=== PATIENT | male | born 1975 | race Hispanic/Latino ===

== ENCOUNTER 2018-03-10 06:14 | Inpatient (IN) | payer SELFPAY ==
[2018-03-10] MEDS ORDERED: MORPHINE 4 MG/ML SYR ONE (06:51)
[2018-03-10] MEDS ORDERED: NA CHLORIDE 0.9% 1,000 ML ONE (06:51)
[2018-03-10] MEDS ORDERED: ONDANSETRON 4 MG/2 ML VIAL ONE (06:51)
[2018-03-10 07:09] LABS: Absolute Lymphocytes (CBC) 1.4 K/uL (0.7-4.9); Absolute Monocytes 0.7 K/uL (0.1-1.3); Absolute Neutrophil 9.6 K/uL (1.8-8.0); Basophils % 0.6 % (0-1.3); Eosinophils % 1.5 % (0-4.4); Hematocrit 44.9 % (39.6-49.0); Lymphocytes % 11.7 % (15.3-44.8); MCH 28.4 pg (27.0-35.0); MPV 9.6 fL (7.6-11.3); Monocytes % 6.1 % (3.3-12.3); RBC Red Blood Cell Count 5.34 M/uL (4.33-5.43)
[2018-03-10 07:19] LABS: Bicarbonate 28 mEq/L (21-31); Lipase 20 U/L (22-51); Potassium 3.8 mEq/L (3.6-5.0); Sodium Level 134 mEq/L (135-145)
[2018-03-10 07:25] LABS: ALT/SGPT 24 IU/L (10-60); AST/SGOT 17 IU/L (10-42); Albumin 3.8 g/dL (3.2-5.5); Alkaline Phosphatase 89 IU/L (42-121); Amylase Level 47 U/L (28-100); BUN Blood Urea Nitrogen 15 mg/dL (6-20); Bilirubin Direct 0.2 mg/dL (0-0.2); Bilirubin Total 0.8 mg/dL (0.3-1.2); Protein, Total 6.9 g/dL (6.0-8.3)
[2018-03-10 07:28] LABS: Glucose Level 405 mg/dL (65-120)
[2018-03-10 07:51] LABS: Urine Bacteria <20 /HPF (NONE SEEN); Urine Culture Reflex Order NOT NEEDED; Urine RBC <5 /HPF (NONE SEEN)
--- NOTE | 2018-03-10 07:54 | RAD REPORT ---
EXAM DESCRIPTION: CT - Abdomen Pelvis W Contrast - 03/10/2018 7:38 am CLINICAL HISTORY: Abdominal pain. Right lower quadrant pain and fever COMPARISON: 2007 TECHNIQUE: Computed axial tomography of the abdomen and pelvis was obtained. 100 cc Isovue-300 is ad ministered intravenously. Oral contrast was not requested which limits evaluation of bowel. . A preli minary report was gender by [employer] and reviewed prior to dictation All CT scans are performed using dose optimization technique as appropriate and may include automated exposure control or mA/KV adjustment according to patient size. FINDINGS: The liver has a diminished attenuation consistent with fatty infiltration. Spleen, pancreas, adrenals and right kidney appear unremarkable. Parapelvic left renal cysts are seen . The appendix is normal caliber. There is no evidence of diverticulitis Fluid is present within nondilated small bowel Increased density is present within the subcutaneous tissues of the right scrotum and lower right ing uinal region IMPRESSION: Fluid within nondilated small bowel may indicate an enteritis Increased density is present within the subcutaneous tissues of the right scrotum and lower right ing uinal region which may indicate a cellulitis and should be correlated clinically
--- NOTE | 2018-03-10 08:04 | RAD REPORT ---
EXAM DESCRIPTION: US - Scrotum Testicles - 03/10/2018 7:25 am CLINICAL HISTORY: Right scrotal pain COMPARISON: CT abdomen March 10 FINDINGS: The right testicle measures 4.6 x 2.3 x 2.5 centimeters. The left testicle measures 4 x 2. 2 x 2.8 centimeters. The echotexture of each testicle is homogeneous with normal appearing intratesticular blood flow. The epididymides demonstrate normal blood flow. Diffuse edema is present within the right scrotal skin and subcutaneous tissues. A discrete fluid-belinda led abscess is not seen IMPRESSION: Diffuse edema in the right scrotal skin and subcutaneous tissues consistent with a cellu litis. A discrete fluid-filled abscess is not visualized
[2018-03-10] MEDS ORDERED: AMPICILLIN/SULBACT 3 GM in NA CHLORIDE 0.9% 100 ML IVPB ONE (08:30)
--- NOTE | 2018-03-10 08:38 | P.HP ---
Addendum entered and electronically signed by Gabby Yan FNPC 03/10/18 08 :54: Pt does no smoke, occasional ETOH, has one Son, lives with Significant other. Primarily speaks Mont[place]err[place]ian. 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 Pt says he sweats profusely while working and is in wet clothing most of the day. Original Note: Certification for Inpatient With expected LOS: >2 Midnights Patient will require the following post-hospital care: None Practitioner: I am a practitioner with admitting privileges, knowledge of patient current condition, hospital course, and medical plan of care. Services: Services provided to patient in accordance with Admission requirements found in Title 42 Section 412.3 of the Code of Federal Regulations <Gabby Yan - Last Filed: 03/10/18 08:26> Patient admitted to: Inpatient With expected LOS: >2 Midnights Patient will require the following post-hospital care: None Practitioner: I am a practitioner with admitting privileges, knowledge of patient current condition, hospital course, and medical plan of care. Services: Services provided to patient in accordance with Admission requirements found in Title 42 Section 412.3 of the Code of Federal Regulations <Dominick Pearson - Last Filed: 03/10/18 09:29> Patient History Date of Service: 03/10/18 Primary Care Provider: Norma Murray Reason for admission: Cellulitis of right scrotum History of Present Illness: Pt states he was lifting an air conditioning unit three days ago and had some right groin discomfort. Noted small bulge to right inguinal canal. Pt states the area started out small and progressively became bigger and more painful. Home medications list reviewed: Yes (Pt stopped all his medications 1 yr ago) - Past Medical/Surgical History Has patient received pneumonia vaccine in the past: No Diabetic: Yes -: Diabetes - stopped taking Metformin 1 yr ago <Gabby Yan - Last Filed: 03/10/18 08:26> Date of Service: 03/10/18 Primary Care Provider: Norma Murray NP History of Present Illness: 42-year-old male presented emergency room with inflammation to the right scrotal region. Erythema and pain noted. This starts to get worse today. 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 He start to notice some inflammation to the scan over the past several days. It has been getting worse. He did report a mild fever and mild nausea over the weekend. He denied any chest pain or shortness of breath. Patient with history of diabetes uncontrolled. He use to take oral medication about a year ago but stopped. Patient came to the ER for evaluation. In the ER patient was evaluated. White count elevated at 12. CT scan shows right scrotal and lower right inguinal region cellulitis. Scrotal ultrasound also shows right scrotal cellulitis. No abscess noted. Blood sugar was 405. Due to the nature of his symptoms the patient was admitted for treatment. When I saw the patient in the ER he was without any significant distress. Patient does not appear septic. Home medications list reviewed: Yes - Past Medical/Surgical History Has patient received pneumonia vaccine in the past: No Diabetic: Yes -: Diabetes mellitus type 2 -: Hypertension Past Surgical History: Patient denies surgical history Psychosocial/ Personal History: The patient is single. He has 1 child. 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 - Family History Mother -: Diabetes - Social History Smoking Status: Never smoker Alcohol use: Yes CD- Drugs: No Caffeine use: Yes Place of Residence: Home <Dominick Pearson - Last Filed: 03/10/18 09:29> Allergies No Known Allergies Allergy (Unverified 03/10/18 08:23) Review of Systems Unremarkable General: Unremarkable Eyes: Unremarkable ENT: Unremarkable Respiratory: Unremarkable Cardiovascular: Unremarkable Gastrointestinal: Unremarkable Musculoskeletal: Other (difficulty ambulating second to pressure in right scrotal area) Integumentary: Other (erythema to right scrotum) Neurological: Unremarkable Lymphatics: Unremarkable <Gabby Yan - Last Filed: 03/10/18 08:26> General: Fever, As per HPI Eyes: Unremarkable ENT: Unremarkable Respiratory: Unremarkable Cardiovascular: Unremarkable Gastrointestinal: Nausea, As per HPI Musculoskeletal: Other Integumentary: Other Neurological: Unremarkable Lymphatics: Unremarkable <Dominick Pearson - Last Filed: 03/10/18 09:29> Physical Examination - Vital Signs Temperature: 97.5 F Blood Pressure: 162/95 Pulse: 72 Respirations: 16 Pulse Ox (%): 97 - Physical Exam HEENT: Atraumatic, Normocephalic, PERRLA Neck: Supple, 2+ carotid pulse no bruit, JVD not distended Respiratory: Clear to auscultation bilaterally, Normal air movement Cardiovascular: No edema, Normal pulses, Regular rate/rhythm Capillary refill: <2 Seconds Gastrointestinal: Normal bowel sounds, Other (mild tenderness to right inguinal canal) Musculoskeletal: No erythema, No tenderness Integumentary: Tenderness/swelling, Erythema, Other (right inguinal canal and lateral scrotum) Neurological: Normal speech, Normal strength at 5/5 x4 extr, Normal tone, Sensation intact Lymphatics: Inguinal lymphadenopathy, Other (small to right) External genitalia: Edema, Tenderness, Other (to right scrotum, no testicular tenderness) Rectal: Deferred - Studies Laboratory Data (last 24 hrs) 03/10/18 06:50: Creatinine 0.75 03/10/18 06:50: WBC 12.0 H, Hgb 15.2, Hct 44.9, Plt Count 180 03/10/18 06:50: Sodium 134 L, Potassium 3.8, BUN 15, Creatinine 0.77, Glucose 405 H*, Total Bilirubin 0.8, AST 17, ALT 24, Alkaline Phosphatase 89, Amylase 47 , Lipase 20 L <Gabby Yan - Last Filed: 03/10/18 08:26> - Physical Exam General: Alert, In no apparent distress, Oriented x3, Cooperative HEENT: Atraumatic, Normocephalic, PERRLA, Mucous membr. moist/pink Neck: Supple, 2+ carotid pulse no bruit, JVD not distended, No Thyromegaly Respiratory: Clear to auscultation bilaterally, Normal air movement Cardiovascular: No edema, Normal pulses, Regular rate/rhythm Capillary refill: <2 Seconds Gastrointestinal: Normal bowel sounds, No masses, No rebound, No guarding, Other Musculoskeletal: No erythema, No tenderness, No warmth Integumentary: Tenderness/swelling (To the right scrotal region), Erythema (To the right scrotal region), Other (Right scrotal and lower inguinal region induration) Neurological: Normal speech, Normal strength at 5/5 x4 extr, Normal tone, Sensation intact, Normal affect Lymphatics: Inguinal lymphadenopathy, Other External genitalia: Edema (To the right scrotal region), Tenderness Rectal: Deferred - Studies Laboratory Data (last 24 hrs) 03/10/18 06:50: Creatinine 0.75 03/10/18 06:50: WBC 12.0 H, Hgb 15.2, Hct 44.9, Plt Count 180 03/10/18 06:50: Sodium 134 L, Potassium 3.8, BUN 15, Creatinine 0.77, Glucose 405 H*, Total Bilirubin 0.8, AST 17, ALT 24, Alkaline Phosphatase 89, Amylase 47 , Lipase 20 L <Dominick Pearson - Last Filed: 03/10/18 09:29> Assessment and Plan - Problems (Diagnosis) (1) Cellulitis Current Visit: Yes Status: Acute (2) Hypertension Current Visit: Yes Status: Acute (3) Non-insulin treated type 2 diabetes mellitus Current Visit: Yes Status: Acute - Advance Directives Does patient have a Living Will: No Does patient have a Durable POA for Healthcare: No - Code Status/Comfort Care Code Status Assessed: Yes Code Status: Full Code <Yuriy,Gabby - Last Filed: 03/10/18 08:26> - Problems (Diagnosis) (1) Diabetes mellitus Current Visit: Yes Status: Chronic Plan: Diabetes uncontrolled. Patient has been without medication over a year. Will start Levemir 20 units subcu. Will continue sliding scale. Will check A1c. Patient will need treatment at discharge. Patient with cellulitis. Will continue with antibiotic therapy. Will console urology to further assess. No abscess noted. 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 Patient with induration to the right scrotal region and lower inguinal region. Will monitor closely. Will consult urology to further evaluate. Qualifiers: Site of cellulitis: other site Qualified Code(s): L03.818 - Cellulitis of other sites (3) Hypertension Current Visit: Yes Status: Chronic Plan: Blood pressure mildly elevated. Will start lisinopril 10 mg daily. Qualifiers: Hypertension type: essential hypertension Qualified Code(s): I10 - Essential (primary) hypertension Discharge Plan: Home Plan to discharge in: 72 Hours - Advance Directives Does patient have a Living Will: No Does patient have a Durable POA for Healthcare: No - Code Status/Comfort Care Code Status Assessed: Yes Code Status: Full Code Physician Review: Patient Assessed, Agree with Above Assessment and Plan Time Spent Managing Pts Care (In Minutes): 55 <Dominick Pearson - Last Filed: 03/10/18 09:29>
[2018-03-10] MEDS ORDERED: ONDANSETRON 4 MG/2 ML VIAL IV PRN ×2 (09:29→11:34)
[2018-03-10] MEDS ORDERED: TRAMADOL HCL 50 MG TAB PO PRN (09:29)
[2018-03-10] MEDS ORDERED: D50W 25 GM/50 ML SYRINGE IV PRN ×2 (09:29→11:34)
[2018-03-10] MEDS ORDERED: GLUCAGON 1 MG/VIAL IM PRN ×2 (09:29→11:34)
[2018-03-10] MEDS ORDERED: VANCOMYCIN 1.25 GM in NA CHLORIDE 0.9% 250 ML IVPB SCH (10:00)
[2018-03-10] MEDS: NA CHLORIDE 0.9% 1,000 ML IV SCH ×3 (10:00→21:24)
--- NOTE | 2018-03-10 10:00 | ER ---
Nurse's Notes [facility] Name: Matthew Herrera Age: 42 yrs Sex: Male : 1975 Arrival Date: 03/10/2018 Time: 06:22 Bed 6 Private MD: Diagnosis: Cellulitis of right scrotum Presentation: 03/10 06:36 Presenting complaint: Patient states: of groin pain on the right. he also had rv undocumented fever yesterday but denies pain. this morning he woke up in pain (10/10). Transition of care: patient was not received from another setting of care. Onset of symptoms was March 10, 2018 at 05:00. Risk Assessment: Do you want to hurt yourself or someone else? Patient reports no desire to harm self or others. Initial Sepsis Screen: Does the patient meet any 2 criteria? No. Patient's initial sepsis screen is negative. Care prior to arrival: None. 06:36 Method Of Arrival: Ambulatory rv 06:36 Acuity: STEFF 3 rv 07:33 Initial Sepsis Screen: Does the patient have a suspected source of infection?. ph Historical: - Allergies: 06:38 No Known Allergies; rv - Home Meds: 06:38 None [Active]; rv - PMHx: 06:38 None; rv - PSHx: 06:38 None; rv - Immunization history:: Adult Immunizations Flu vaccine is not up to date. - Social history:: Smoking status: Patient/guardian denies using tobacco, never smoked. - Ebola Screening: : Patient negative for fever greater than or equal to 101.5 degrees Fahrenheit, and additional compatible Ebola Virus Disease symptoms Patient denies exposure to infectious person Patient denies travel to an Ebola-affected area in the 21 days before illness onset. Screenin:32 Abuse screen: Denies threats or abuse. Denies injuries from another. Nutritional ph screening: No deficits noted. Tuberculosis screening: No symptoms or risk factors identified. Fall Risk None identified. Assessment: 06:40 General: Appears uncomfortable, slender, Behavior is calm, cooperative. Pain: Complains rv of pain in groin Pain currently is 10 out of 10 on a pain scale. Neuro: Level of Consciousness is awake, alert, obeys commands, Oriented to person, place, time, situation. Cardiovascular: Capillary refill < 3 seconds. Respiratory: Airway is patent. GI: No signs and/or symptoms were reported involving the gastrointestinal system. : Swelling noted on scrotum. EENT: No signs and/or symptoms were reported regarding the EENT system. Derm: Skin is intact. Musculoskeletal: No signs and/or symptoms reported regarding the musculoskeletal system. 07:30 Reassessment: Patient appears in no apparent distress at this time. Patient and/or ph family updated on plan of care and expected duration. Pain level reassessed. Patient is alert, oriented x 3, equal unlabored respirations, skin warm/dry/pink. Pt resting quietly, at bedside, awaiting lab and radiology results, VSS. 09:03 Reassessment: Patient appears in no apparent distress at this time. Patient and/or ph family updated on plan of care and expected duration. Pain level reassessed. Patient is alert, oriented x 3, equal unlabored respirations, skin warm/dry/pink. Pt resting quietly, rates pain 3/10 at this time, VSS, at bedside. Vital Signs: 06:39 BP 162 / 95; Pulse 72; Resp 16; Temp 97.2; Pulse Ox 97% ; Weight 72.57 kg; Height 5 ft. rv 6 in. (167.64 cm); 07:31 BP 154 / 91; Pulse 73; Resp 16; Pulse Ox 98% on R/A; ph 09:03 BP 146 / 87; Pulse 73; Resp 18; Pulse Ox 98% on R/A; ph 06:39 Body Mass Index 25.82 (72.57 kg, 167.64 cm) rv ED Course: 06:22 Patient arrived in ED. al2 06:28 Stefano Lewis, LANDON is Primary Nurse. bp 06:29 Gabby Yan FNP-C is PHCP. snw 06:29 Jose Umana MD is Attending Physician. snw 06:38 Triage completed. rv 07:03 Inserted saline lock: 18 gauge in right antecubital area, using aseptic technique. rv 07:23 US Scrotum Testicles In Process Unspecified. EDMS 07:32 Patient has correct armband on for positive identification. Placed in gown. Bed in low ph position. Call light in reach. Side rails up X 1. Pulse ox on. NIBP on. Warm blanket given. 07:33 Arm band placed on. ph 07:36 CT completed. Patient tolerated procedure well. Patient moved to CT via wheelchair. Patient moved back from CT. 07:39 CT Abd/Pelvis - W/Contrast In Process Unspecified. EDMS 09:42 Inserted saline lock: 22 gauge in right wrist, using aseptic technique. Blood collected.em1 09:55 Dominick Pearson DO is Hospitalizing Provider. snw Administered Medications: 07:02 Drug: morphine 4 mg Route: IVP; Site: right antecubital; rv 09:53 Follow up: Response: No adverse reaction; Pain is decreased ph 07:02 Drug: Zofran 4 mg Route: IVP; Site: right antecubital; rv 09:53 Follow up: Response: No adverse reaction ph 07:03 Drug: NS 0.9% 1000 ml Route: IV; Rate: 125 ml/hr; Site: right antecubital; rv 09:54 Follow up: Response: No adverse reaction; IV Status: Infusion continued upon admission ph 09:02 Drug: Unasyn 3 grams Route: IVPB; Infused Over: 30 mins; Site: right antecubital; ph 09:53 Follow up: Response: No adverse reaction; IV Status: Completed infusion ph Outcome: 09:59 Decision to Hospitalize by Provider. snw 11:47 Patient left the ED. ph Signatures: Dispatcher [employer] EDMS Gabby Yan, [employer]-C [employer]-Cynthia Vaughn Eric em1 Coty Lamb RN RN Stefano Lewis RN RN bp Love, Angelica msDillon Hallman RN RN rv
--- NOTE | 2018-03-10 10:00 | EDPHYS ---
Physician Documentation [facility] Name: Matthew Herrera Age: 42 yrs Sex: Male : 1975 Arrival Date: 03/10/2018 Time: 06:22 Bed 6 Private MD: ED Physician Jose Umana HPI: 03/10 07:17 This 42 yrs old Male presents to ER via Ambulatory with complaints of Groin snw Pain. 07:17 The patient presents with swelling, that is moderate, of the right inguinal area, snw tenderness. Onset: The symptoms/episode began/occurred 3 day(s) ago, and became worse 1 day(s) ago, and became persistent. Modifying factors: The symptoms are alleviated by nothing. Associated signs and symptoms: Pertinent positives: nausea. Severity of symptoms: At their worst the symptoms were moderate, severe. The patient has not experienced similar symptoms in the past. The patient has not recently seen a physician. 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 Historical: - Allergies: 06:38 No Known Allergies; rv - Home Meds: 06:38 None [Active]; rv - PMHx: 06:38 None; rv - PSHx: 06:38 None; rv - Immunization history:: Adult Immunizations Flu vaccine is not up to date. - Social history:: Smoking status: Patient/guardian denies using tobacco, never smoked. - Ebola Screening: : Patient negative for fever greater than or equal to 101.5 degrees Fahrenheit, and additional compatible Ebola Virus Disease symptoms Patient denies exposure to infectious person Patient denies travel to an Ebola-affected area in the 21 days before illness onset. ROS: 07:15 Eyes: Negative for injury, pain, redness, and discharge, ENT: Negative for injury, snw pain, and discharge, Neck: Negative for injury, pain, and swelling, Cardiovascular: Negative for chest pain, palpitations, and edema, Respiratory: Negative for shortness of breath, cough, wheezing, and pleuritic chest pain, Back: Negative for injury and pain, MS/Extremity: Negative for injury and deformity, Skin: Negative for injury, rash, and discoloration, Neuro: Negative for headache, weakness, numbness, tingling, and seizure. 07:15 Constitutional: Positive for malaise. 07:15 Abdomen/GI: Positive for abdominal pain, of the right lower quadrant. 07:15 : Positive for pain, tenseness to right lateral scrotum. Exam: 06:51 Constitutional: This is a well developed, well nourished patient who is awake, alert, snw and in no acute distress. Head/Face: Normocephalic, atraumatic. Eyes: Pupils equal round and reactive to light, extra-ocular motions intact. Lids and lashes normal. Conjunctiva and sclera are non-icteric and not injected. Cornea within normal limits. Periorbital areas with no swelling, redness, or edema. ENT: Nares patent. No nasal discharge, no septal abnormalities noted. Tympanic membranes are normal and external auditory canals are clear. Oropharynx with no redness, swelling, or masses, exudates, or evidence of obstruction, uvula midline. Mucous membranes moist. Neck: Trachea midline, no thyromegaly or masses palpated, and no cervical lymphadenopathy. Supple, full range of motion without nuchal rigidity, or vertebral point tenderness. No Meningismus. Chest/axilla: Normal chest wall appearance and motion. Nontender with no deformity. No lesions are appreciated. Cardiovascular: Regular rate and rhythm with a normal S1 and S2. No gallops, murmurs, or rubs. Normal PMI, no JVD. No pulse deficits. Respiratory: Lungs have equal breath sounds bilaterally, clear to auscultation and percussion. No rales, rhonchi or wheezes noted. No increased work of breathing, no retractions or nasal flaring. Back: No spinal tenderness. No costovertebral tenderness. Full range of motion. Skin: Warm, dry with normal turgor. Normal color with no rashes, no lesions, and no evidence of cellulitis. 06:51 MS/ Extremity: Pulses equal, no cyanosis. Neurovascular intact. Full, normal range of motion. Neuro: Awake and alert, GCS 15, oriented to person, place, time, and situation. Cranial nerves II-XII grossly intact. Motor strength 5/5 in all extremities. Sensory grossly intact. Cerebellar exam normal. Normal gait. 06:51 Abdomen/GI: Inspection: abdomen appears normal, Bowel sounds: normal, Palpation: mild abdominal tenderness, in the right lower quadrant. 06:51 : Male external genitalia: erythema, swelling, scrotal, is noted in the right inguinal area, tenderness. Vital Signs: 06:39 BP 162 / 95; Pulse 72; Resp 16; Temp 97.2; Pulse Ox 97% ; Weight 72.57 kg; Height 5 ft. rv 6 in. (167.64 cm); 07:31 BP 154 / 91; Pulse 73; Resp 16; Pulse Ox 98% on R/A; ph 09:03 BP 146 / 87; Pulse 73; Resp 18; Pulse Ox 98% on R/A; ph 06:39 Body Mass Index 25.82 (72.57 kg, 167.64 cm) rv MDM: 06:29 Patient medically screened. snw 09:59 Data reviewed: vital signs, nurses notes. Data interpreted: Pulse oximetry: on room air snw is 98 %. Interpretation: normal. Counseling: I had a detailed discussion with the patient and/or guardian regarding: the historical points, exam findings, and any diagnostic results supporting the discharge/admit diagnosis, the presence of at least one elevated blood pressure reading (>120/80) during this emergency department visit, lab results, radiology results, the need for further work-up and treatment in the hospital. Physician consultation: Dominick Pearson DO was called at 09:15, was contacted at 09:15, regarding admission, to the medical/surgical unit. patient's condition. 03/10 06:44 Order name: Amylase, Serum; Complete Time: 07:33 snw 03/10 06:44 Order name: Basic Metabolic Panel; Complete Time: 07:33 snw 03/10 06:44 Order name: CBC with Diff; Complete Time: 07:13 snw 03/10 06:44 Order name: Creatinine for Radiology; Complete Time: 07:21 snw 03/10 06:44 Order name: Hepatic Function; Complete Time: 07:33 snw 03/10 06:44 Order name: Lipase; Complete Time: 07:33 snw 03/10 06:44 Order name: Urine Microscopic Only; Complete Time: 07:55 snw 03/10 06:44 Order name: Blood Culture Adult (2) [facility] 03/10 07:15 Order name: Urine Dipstick--Ancillary (enter results) ag 03/10 09:05 Order name: Hemoglobin A1c sn 03/10 09:05 Order name: Procalcitonin snw 03/10 10:09 Order name: Hemoglobin A1C; Complete Time: 10:11 EDRI 03/10 10:35 Order name: Procalcitonin; Complete Time: 11:13 EDRI 03/10 11:43 Order name: Glucose, Ancillary Testing; Complete Time: 14:27 EDRI 03/10 06:44 Order name: IV Saline Lock; Complete Time: 06:52 snw 03/10 06:44 Order name: Labs collected and sent; Complete Time: 06:52 snw 03/10 06:44 Order name: Urine Dipstick-Ancillary (obtain specimen); Complete Time: 09:54 snw 03/10 06:44 Order name: US Scrotum Testicles; Complete Time: 08:16 snw 03/10 06:44 Order name: CT Abd/Pelvis - W/Contrast; Complete Time: 07:55 snw Administered Medications: 07:02 Drug: morphine 4 mg Route: IVP; Site: right antecubital; rv 09:53 Follow up: Response: No adverse reaction; Pain is decreased ph 07:02 Drug: Zofran 4 mg Route: IVP; Site: right antecubital; rv 09:53 Follow up: Response: No adverse reaction ph 07:03 Drug: NS 0.9% 1000 ml Route: IV; Rate: 125 ml/hr; Site: right antecubital; rv 09:54 Follow up: Response: No adverse reaction; IV Status: Infusion continued upon admission ph 09:02 Drug: Unasyn 3 grams Route: IVPB; Infused Over: 30 mins; Site: right antecubital; ph 09:53 Follow up: Response: No adverse reaction; IV Status: Completed infusion ph Disposition: 03/10/18 09:59 Hospitalization ordered by Dominick Pearson for Inpatient Admission. Preliminary diagnosis is Cellulitis of right scrotum. - Bed requested for Telemetry/MedSurg (Inpatient). - Status is Inpatient Admission. ph - Condition is Stable. - Problem is new. - Symptoms are unchanged. UTI on Admission? No Addendum: 03/27/2018 10:56 Co-signature as Attending Physician, Jose Umana MD. g s Signatures: Dis[facility] Gabby Yan, HAR[employer] OFFICER-[employer] Ewelina Shaikh Patricia RN RN ph Umana, MD SLICK Garcia Dillon Coates RN RN rv Corrections: (The following items were deleted from the chart) 03/10 10:48 09:59 Hospitalization Ordered by Dominick Pearson DO for Inpatient Admission. Preliminary ag diagnosis is Cellulitis of right scrotum. Bed requested for Telemetry/MedSurg (Inpatient). Status is Inpatient Admission. Condition is Stable. Problem is new. Symptoms are unchanged. UTI on Admission? No. snw 11:47 10:48 03/10/2018 09:59 Hospitalization Ordered by Dominick Pearson DO for Inpatient ph Admission. Preliminary diagnosis is Cellulitis of right scrotum. Bed requested for Telemetry/MedSurg (Inpatient). Status is Inpatient Admission. Condition is Stable. Problem is new. Symptoms are unchanged. UTI on Admission? No. ag
[2018-03-10 10:09] LABS: A1c Component 1.79 mg/dL; Hemoglobin A1c 12.7 % (4-6.0)
[2018-03-10] MEDS ORDERED: INSULIN -REGULAR HUMAN 50 UNIT/0.5 ML ML IV SCH (11:34)
[2018-03-10] MEDS ORDERED: VANCOMYCIN/NS 1 gm 1 GM/250 ML BAG IVPB SCH (11:34)
[2018-03-10] MEDS ORDERED: MORPHINE 4 MG/ML SYR IV PRN (11:34)
[2018-03-10] MEDS ORDERED: ACETAMINOPHEN 500 MG TAB PO PRN (11:34)
[2018-03-10 12:16] VITALS: BMI 25.0
[2018-03-10] MEDS: HYDROCODONE/APAP 7.5/325 MG TAB PO PRN ×2 (12:26→21:38)
[2018-03-10] MEDS: INSULIN -REGULAR HUMAN 50 UNIT/0.5 ML ML SQ SCH ×3 (12:26→21:25)
[2018-03-10] MEDS: ACETAMINOPHEN 500 MG TAB PO PRN (16:23)
[2018-03-10] MEDS: ENOXAPARIN 40 MG/0.4 ML SQ SCH (16:23)
[2018-03-10] MEDS ORDERED: POTASSIUM CL SA 10 MEQ TAB PO ONE (17:00)
[2018-03-10] MEDS ORDERED: PIPER/TAZO/NS 3.375gm 3.375 GM/100 ML BAG IVPB SCH (17:00)
[2018-03-10 17:37] LABS: Urine Blood NEGATIVE (NEG); Urine Glucose 2+ (NEG); Urine Protein NEGATIVE (NEG)
[2018-03-10] MEDS: PIPER/TAZO/NS 3.375gm 3.375 GM/100 ML BAG IVPB SCH (17:38)
--- NOTE | 2018-03-10 19:09 | CON ---
History Of Present Illness: This is a pleasant gentleman, who is 42 years old with history of diabetes mellitus type 2. 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 He sa ys he has been to places with lots of spiders lately. He noticed inflammation in his right scrotum 2 days ago after lifting something heavy. He thought he had caused a hernia there, but it continue to swell and it was reddened. So he came to the ER, where [place] [address] [place] scan showed a right scrotal or right inguinal cellulitis. Scrotal ultrasound confirmed the same thing. No abscesses were found. His blood sugar was elevated to 405. He was admitted for IV antibiotics. He is currently on IV vancomycin. Past Medical History: The patient has diabetes type 2 and hypertension. Past Surgical History: Denies. 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 Family History: Mother, diabetes. Social History: The patient never smoked. Alcohol use; some use, yes. No drug use. Caffeine use, yes. Resides at home. Allergies: NO KNOWN DRUG ALLERGIES. Review of Systems: General: Unremarkable. Eyes: Unremarkable. HEENT: Unremarkable. Respiratory: No pneumonia or pulmonary problems. Cardiac: No chest pain. Gastrointestinal: He complains of some nausea with this illness. Musculoskeletal: None. Integumentary: None. Neurologic: Unremarkable. Lymphatics: Unremarkable. Physical Examination: Vital Signs: Temperature 97.5, blood pressure 162/95, pulse 72, respirations 18, and saturation 97%. HEENT: Atraumatic and normocephalic. Neck: Supple. Chest: Clear to auscultation. Cardiovascular: S1 and S2. Skin: No rashes on the skin. Some tenderness and swelling over the right inguinal area with some ma tting. No masses were palpable. No flocculence. Testicles were normal. GLENN: Deferred. Laboratory Studies: Shows a white count 12.0, H and H 15 and 45, and platelet count 180. Chemistry: Sodium 134, potassium 3.8, chloride 98, carbon dioxide 28, BUN 15, creatinine 0.77, and glucose 405 . He has had subsequent glucose test that is now down to 231. Urine studies are normal. Assessment: Right scrotal cellulitis. Plan: Continue IV antibiotic treatment. The patient is currently on vancomycin 1.25 g q.12 hours an d also Zosyn. Pharmacy will check the vancomycin levels. He is on tramadol for pain, Zofran for naus ea. We will continue to monitor the patient and see how he does, and then we will for home antibioti cs for his cellulitis later. TROY/FROILAN Voice ID: [id number] Report ID: [id number]
[2018-03-10] MEDS: VANCOMYCIN 1.25 GM in NA CHLORIDE 0.9% 250 ML IVPB SCH (21:25)
[2018-03-11] MEDS ORDERED: LORAZEPAM 0.5 MG TABLET PO ONE (00:08)
[2018-03-11] MEDS: PIPER/TAZO/NS 3.375gm 3.375 GM/100 ML BAG IVPB SCH ×3 (01:09→17:43)
[2018-03-11] MEDS: ACETAMINOPHEN 500 MG TAB PO PRN ×3 (01:10→15:49)
[2018-03-11 04:42] LABS: Absolute Lymphocytes (CBC) 1.4 K/uL (0.7-4.9); Absolute Neutrophil 10.6 K/uL (1.8-8.0); Basophils % 0.2 % (0-1.3); Eosinophils % 0.2 % (0-4.4); Hematocrit 38.8 % (39.6-49.0); Lymphocytes % 10.6 % (15.3-44.8); MCH 28.7 pg (27.0-35.0); MCV 83.5 fL (80-100); MPV 9.5 fL (7.6-11.3); Monocytes % 7.9 % (3.3-12.3); RBC Red Blood Cell Count 4.64 M/uL (4.33-5.43)
[2018-03-11 05:26] LABS: BUN Blood Urea Nitrogen 10 mg/dL (6-20); Bicarbonate 25 mEq/L (21-31); Glucose Level 159 mg/dL (65-120); HDL Cholesterol 40 mg/dL (27-67); LDL Cholesterol, Calculated 64 (<130); Magnesium 1.8 mg/dL (1.8-2.5); Potassium 3.2 mEq/L (3.6-5.0); Sodium Level 136 mEq/L (135-145); Thyroid Stimulating Hormone 1.27 uIU/mL (0.34-5.60)
[2018-03-11] MEDS ORDERED: POTASSIUM 25 MEQ EFFERV TAB PO ONE (05:36)
[2018-03-11] MEDS ORDERED: MAGNESIUM SULFATE 1 gm IVPB 1 GM/100 ML BAG IV ONE (05:37)
[2018-03-11] MEDS ORDERED: INSULIN DETEMIR 100 UNIT/1 ML INSULIN SQ SCH (08:00)
[2018-03-11] MEDS: LISINOPRIL 10 MG TAB PO SCH (08:20)
[2018-03-11] MEDS: INSULIN -REGULAR HUMAN 50 UNIT/0.5 ML ML SQ SCH ×4 (08:21→20:57)
[2018-03-11] MEDS: NA CHLORIDE 0.9% 1,000 ML IV SCH ×3 (08:22→17:42)
[2018-03-11] MEDS: INSULIN DETEMIR 100 UNIT/1 ML INSULIN SQ SCH (08:23)
[2018-03-11] MEDS: VANCOMYCIN 1.25 GM in NA CHLORIDE 0.9% 250 ML IVPB SCH ×2 (08:24→22:12)
[2018-03-11] MEDS ORDERED: VANCOMYCIN 1 GM in NA CHLORIDE 0.9% 500 ML IVPB SCH (09:00)
--- NOTE | 2018-03-11 10:09 | P.PN ---
Subjective Date of Service: 03/11/18 Primary Care Provider: Norma Murray NP Chief Complaint: Cellulitis of right scrotum Subjective: Improving Physical Examination - Vital Signs Temperature: 98 F Blood Pressure: 126/76 Pulse: 85 Respirations: 18 Pulse Ox (%): 95 - Physical Exam General: Alert, In no apparent distress, Oriented x3, Cooperative HEENT: Atraumatic Neck: Supple Respiratory: Clear to auscultation bilaterally, Normal air movement Cardiovascular: Normal pulses, Regular rate/rhythm Gastrointestinal: Normal bowel sounds, Soft and benign, Non-distended, No masses , No rebound, No guarding Musculoskeletal: No tenderness, No warmth Integumentary: Other (Erythema, swelling to the right scrotal region improved) Neurological: Normal speech, Normal strength at 5/5 x4 extr, Normal tone External genitalia: Other (As above) - Studies Medications List Reviewed: Yes Assessment & Plan - Problems (Diagnosis) (1) Diabetes mellitus Onset Date: 03/11/18 Current Visit: Yes Status: Chronic Plan: A1c 12.2. Patient started on basal insulin-Levemir. Patient will need continue with this. Patient may require metformin at discharge along with insulin. Diabetic education will be provided. Qualifiers: Diabetes mellitus type: type 2 Diabetes mellitus jail insulin use: without oysterman use Diabetes mellitus complication status: with other specified complication Qualified Code(s): E11.69 - Type 2 diabetes mellitus with other specified complication (2) Cellulitis Onset Date: 03/11/18 Current Visit: Yes Status: Acute Plan: Continue with IV antibiotic therapy. This has improved. Anticipate possible discharge tomorrow if improved. Will ambulate patient. Will discuss with urology. Qualifiers: Site of cellulitis: other site Qualified Code(s): L03.818 - Cellulitis of other sites (3) Hypertension Onset Date: 03/11/18 Current Visit: Yes Status: Chronic Plan: Patient started on lisinopril. Will continue monitor and adjust appropriately. Qualifiers: Hypertension type: essential hypertension Qualified Code(s): I10 - Essential (primary) hypertension (4) Hypokalemia Current Visit: Yes Status: Acute Plan: Will monitor and replace appropriately. Replacement protocol in place. Discharge Plan: Home Plan to discharge in: 24 Hours Time Spent Managing Pts Care (In Minutes): 55
[2018-03-11] MEDS ORDERED: POTASSIUM CL SA 10 MEQ TAB PO ONE (14:00)
[2018-03-11] MEDS: ENOXAPARIN 40 MG/0.4 ML SQ SCH (17:43)
[2018-03-11] MEDS ORDERED: BENZONATATE 100 MG CAP PO PRN (19:45)
[2018-03-11 20:16] VITALS: O2SAT 96
[2018-03-12] MEDS: guaiFENesin 100 MG/5 ML UCUP PO SCH ×2 (00:55→08:51)
[2018-03-12] MEDS: PIPER/TAZO/NS 3.375gm 3.375 GM/100 ML BAG IVPB SCH ×2 (00:55→08:51)
[2018-03-12 05:55] LABS: Absolute Lymphocytes (CBC) 1.7 K/uL (0.7-4.9); Absolute Monocytes 1.2 K/uL (0.1-1.3); Absolute Neutrophil 9.7 K/uL (1.8-8.0); Basophils % 0.6 % (0-1.3); Eosinophils % 0.4 % (0-4.4); Hematocrit 37.3 % (39.6-49.0); Lymphocytes % 13.4 % (15.3-44.8); MCH 28.5 pg (27.0-35.0); MCV 83.6 fL (80-100); MPV 9.2 fL (7.6-11.3); Monocytes % 9.1 % (3.3-12.3); RBC Red Blood Cell Count 4.46 M/uL (4.33-5.43)
[2018-03-12 06:05] LABS: BUN Blood Urea Nitrogen 6 mg/dL (6-20); Bicarbonate 26 mEq/L (21-31); Glucose Level 128 mg/dL (65-120); Magnesium 1.8 mg/dL (1.8-2.5); Potassium 3.4 mEq/L (3.6-5.0); Sodium Level 135 mEq/L (135-145)
[2018-03-12] MEDS ORDERED: MAGNESIUM SULFATE 1 gm IVPB 1 GM/100 ML BAG IV ONE (06:24)
[2018-03-12] MEDS ORDERED: POTASSIUM CL SA 10 MEQ TAB PO ONE (06:27)
[2018-03-12] MEDS: NA CHLORIDE 0.9% 1,000 ML IV SCH ×2 (06:51→12:00)
[2018-03-12] MEDS: INSULIN -REGULAR HUMAN 50 UNIT/0.5 ML ML SQ SCH ×2 (07:30→11:30)
[2018-03-12] MEDS: LISINOPRIL 10 MG TAB PO SCH (08:51)
[2018-03-12] MEDS: INSULIN DETEMIR 100 UNIT/1 ML INSULIN SQ SCH (08:51)
[2018-03-12] MEDS ORDERED: VANCOMYCIN 1.5 GM in NA CHLORIDE 0.9% 500 ML IVPB SCH (09:00)
[2018-03-12 12:03] VITALS: BP 136/79; TEMP 98.6
--- NOTE | 2018-03-12 16:50 | P.DS ---
Admission Date: 03/10/18 Discharge Date: 03/12/18 Primary Care Provider: Norma Murray NP Disposition: ROUTINE DISCHARGE Discharge Condition: GOOD Reason for Admission: Cellulitis of right scrotum Consultations: Urology Procedures: None Brief History of Present Illness: 42-year-old male presented emergency room with inflammation to the right scrotal region. Erythema and pain noted. This starts to get worse today. Patient works outside [employer]. He start to notice some inflammation to the scan over the past several days. It has been getting worse. He did report a mild fever and mild nausea over the weekend. He denied any chest pain or shortness of breath. Patient with history of diabetes uncontrolled. He use to take oral medication about a year ago but stopped. Patient came to the ER for evaluation. In the ER patient was evaluated. White count elevated at 12. CT scan shows right scrotal and lower right inguinal region cellulitis. Scrotal ultrasound also shows right scrotal cellulitis. No abscess noted. Blood sugar was 405. Due to the nature of his symptoms the patient was admitted for treatment. Hospital Course: Overall during the hospital stay patient remained stable Patient was initially admitted to the hospital for sepsis most likely secondary to scrotal cellulitis on the right-hand side. Patient was initially started on IV and vancomycin and Zosyn. Patient had marked improvement here in the hospital and was switched over to p.o. Augmentin after the cultures were initially negative. Patient's swelling and redness improved again markedly here in the hospital and thus patient was discharged home on p.o. Augmentin and doxycycline. While here in the hospital patient did have an episode of hyperglycemia most likely secondary to infection and thus patient was educated extensively on diet and exercise and was asked to follow up with his primary care provider in resume all his home medications as prescribed by his PCP. Patient demonstrated understanding and thus was discharged home under stable condition. Patient was asked to return to work on Friday if the symptoms have not progressed and the swelling has improved/ Vital Signs/Physical Exam: Temp Pulse Resp BP Pulse Ox 98.6 F 68 18 136/79 96 03/12/18 12:00 03/12/18 12:00 03/12/18 12:00 03/12/18 12:03/12/18 12:00 General: Alert, In no apparent distress HEENT: Atraumatic, PERRLA, EOMI Neck: Supple, JVD not distended Respiratory: Clear to auscultation bilaterally, Normal air movement Cardiovascular: Regular rate/rhythm, Normal S1 S2 Gastrointestinal: Normal bowel sounds, No tenderness Musculoskeletal: No tenderness Integumentary: No rashes Neurological: Normal speech, Normal tone, Normal affect Lymphatics: No axilla or inguinal lymphadenopathy External genitalia: Tenderness, Other (Erythema. Improved from before. ) Laboratory Data at Discharge: WBC 12.6 K/uL (4.3-10.9) H 03/12/18 05:30 Hgb 12.7 g/dL (13.6-17.9) L 03/12/18 05:30 Hct 37.3 % (39.6-49.0) L 03/12/18 05:30 Plt Count 176 K/uL (152-406) 03/12/18 05:30 Sodium 135 mEq/L (135-145) 03/12/18 05:30 Potassium 3.7 mEq/L (3.6-5.0) 03/12/18 13:44 BUN 6 mg/dL (6-20) 03/12/18 05:30 Creatinine 0.67 mg/dL (0.61-1.24) 03/12/18 05:30 Glucose 128 mg/dL (65-120) H 03/12/18 05:30 Magnesium 1.8 mg/dL (1.8-2.5) 03/12/18 05:30 Total Bilirubin 0.8 mg/dL (0.3-1.2) 03/10/18 06:50 AST 17 IU/L (10-42) 03/10/18 06:50 ALT 24 IU/L (10-60) 03/10/18 06:50 Alkaline Phosphatase 89 IU/L (42-121) 03/10/18 06:50 Triglycerides 77 mg/dL (35-160) 03/11/18 03:42 Cholesterol 119 mg/dL (<200) 03/11/18 03:42 HDL Cholesterol 40 mg/dL (27-67) 03/11/18 03:42 Cholesterol/HDL Ratio 2.98 03/11/18 03:42 Amylase 47 U/L (28-100) 03/10/18 06:50 Lipase 20 U/L (22-51) L 05/29/18 06:50 Home Medications: Amox/Clavulanate [Augmentin 875-125 Tab] 1 each PO BID #28 tab 03/12/18 Doxycycline Monohydrate 100 mg PO BID #28 capsule 03/12/18 Lisinopril [Prinivil*] 10 mg PO DAILY #30 tab 03/12/18 New Medications: Amox/Clavulanate [Augmentin 875-125 Tab] 1 each PO BID #28 tab Doxycycline Monohydrate 100 mg PO BID #28 capsule Lisinopril [Prinivil*] 10 mg PO DAILY #30 tab Patient Discharge Instructions: Please f.u with PCP in 1 to 2 weeks. New medication. Doxycycline 100mg BID for 14 days. Augementin 875mg BID for 14 days Diet: Regular Activity: Ad darinel Followup: Sheldon Nelson MD [ACTIVE - CAN ADMIT] -
--- NOTE | 2018-03-12 17:43 | PN ---
The patient is postop day #3, doing much better. The swollen right inguinal has gone down, is more i n the area in the scrotum that little more kind of area that may potentially pus out, but right now i t looks okay. We will continue him on antibiotics and if he does become postural, may need to be dra andre. He is afebrile. White count is 12.6, stable. H and H are 12.7 and 37, platelet count 176. H e is afebrile, stable. He is going to go home with something for spider bite, possible Bactrim and A ugmentin to take at home. He really wants to go home and get back to work. He is feeling much deny r and he can follow up with me p.rnina SIMMONS/FROILAN Voice ID: [id number] Report ID: [id number]
== END 2018-03-12 15:52 | disposition home or self-care (01) | DRG 728 ==
LOC: ER 06:14 → ERHOLD 08:47 → 4TH 11:08
PROVIDERS: ADMIT Family Medicine; ATTEND Family Medicine
DX: N49.2 Inflammatory disorders of scrotum (principal); E11.9 Type 2 diabetes mellitus without complications; I10 Essential (primary) hypertension; E87.6 Hypokalemia
CPT/HCPCS: 36415; 74177; 76870; 80048; 80061; 80076; 80202; 81003; 81015; 82150; 82962; 83036; 83690; 83735; 84132; 84145; 84443; 85025; 87040; 96361; 96365; 96375; 99284; J0295; J1650; J2405; J2543; J3475; J7030; Q9967

== ENCOUNTER 2019-05-03 17:07 | Emergency (ER) | payer SELFPAY ==
--- NOTE | 2019-05-03 18:12 | RAD REPORT ---
EXAM DESCRIPTION: RAD - Chest Single View - 05/03/2019 6:05 pm CLINICAL HISTORY: CHEST PAIN Chest pain. COMPARISON: CHEST SINGLE VIEW dated 01/14/2009 FINDINGS: Portable technique limits examination quality. The lungs are grossly clear. The heart is normal in size. No displaced fractures. IMPRESSION: No acute intrathoracic process suspected.
[2019-05-03 18:16] LABS: Absolute Lymphocytes (CBC) 1.3 K/uL (0.7-4.9); Basophils % 0.4 % (0-1.3); Lymphocytes % 23.9 % (15.3-44.8); MPV 10.1 fL (7.6-11.3); RBC Red Blood Cell Count 5.13 M/uL (4.33-5.43)
[2019-05-03 18:19] LABS: Protime INR 0.88
[2019-05-03 18:39] LABS: ALT/SGPT 38 U/L (12-78); AST/SGOT 17 U/L (15-37); Albumin 3.6 g/dL (3.4-5.0); Alkaline Phosphatase 91 U/L (45-117); BUN Blood Urea Nitrogen 12 mg/dL (7-18); Bicarbonate 31 mmol/L (21-32); Bilirubin Direct 0.1 mg/dL (0-0.2); Bilirubin Total 0.5 mg/dL (0.2-1.0); Creatine Phosphokinase 219 U/L (39-308); Magnesium 2.3 mg/dL (1.8-2.4); NT PRO-BNP 40 pg/mL (<125); Potassium 4.3 mmol/L (3.5-5.1); Protein, Total 6.9 g/dL (6.4-8.2); Sodium Level 134 mmol/L (136-145); Troponin (Emerg Dept Use Only) < 0.02 ng/mL (0.0-0.045)
[2019-05-03 18:41] LABS: Glucose Level 450 mg/dL (74-106)
[2019-05-03 19:07] LABS: Urine Blood NEGATIVE (NEG); Urine Glucose 2+ (NEG); Urine Protein NEGATIVE (NEG); Urine pH 6.5 (5.0-7.0)
[2019-05-03] MEDS ORDERED: ASPIRIN 81 MG CHEWABLE TABLET ONE (19:12)
[2019-05-03] MEDS ORDERED: NA CHLORIDE 0.9% 1,000 ML ONE (19:13)
[2019-05-03] MEDS ORDERED: INSULIN -REGULAR HUMAN 50 UNIT/0.5 ML ML ONE (19:13)
[2019-05-03 19:57] LABS: Urine Bacteria <20 /HPF (NONE SEEN); Urine Culture Reflex Order NOT NEEDED; Urine RBC <5 /HPF (NONE SEEN)
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
[2019-05-04 01:23] VITALS: TEMP 98.5
[2019-05-04 01:31] VITALS: BP 132/80; O2SAT 100
--- NOTE | 2019-05-04 10:39 | EKG ---
Test Date: 2019-05-03 Test Time: 21:40:27 Chief Cardiopulmonary Technologist: ELEONORA MEASUREMENT RESULTS: Intervals: Rate: 59 TN: 212 QRSD: 86 QT: 408 QTc: 403 [place]: P: 42 TN: 212 QRS: 97 T: 63 INTERPRETIVE STATEMENTS: Sinus bradycardia with 1st degree AV block Rightward axis ST elevation, consider early repolarization, pericarditis, or injury Nonspecific ST and T wave abnormality Abnormal ECG Compared to ECG 05/03/2019 17:24:02 First degree AV block now present ST (T wave) deviation now present Sinus rhythm no longer present Electronically Signed On 05-04-19 10:38:11 CDT by Edgar Mclaughlin
--- NOTE | 2019-05-04 10:40 | EKG ---
Test Date: 2019-05-03 Test Time: 17:24:02 Voltmeter Operator: NOA MEASUREMENT RESULTS: Intervals: Rate: 67 MT: 196 QRSD: 84 QT: 376 QTc: 397 [place]: P: 51 MT: 196 QRS: 93 T: 57 INTERPRETIVE STATEMENTS: Normal sinus rhythm Rightward axis Possible Acute pericarditis Abnormal ECG Compared to ECG 01/14/2009 19:57:58 Right-axis deviation now present Sinus tachycardia no longer present Electronically Signed On 05-04-19 10:38:22 CDT by Edgar Mclaughlin
== END 2019-05-03 23:00 | disposition home or self-care (01) ==
LOC: ER 17:07
DX: R07.9 Chest pain, unspecified (principal); E08.65 Diabetes mellitus due to underlying condition with hyperglycemia; Z79.84 Long term (current) use of oral hypoglycemic drugs; Z72.0 Tobacco use
CPT/HCPCS: 36415; 71045; 80048; 80076; 81003; 81015; 82550; 82962; 83735; 83880; 84484; 85025; 85610; 87086; 87088; 93005; 96361; 96374; 99285; J7030

== ENCOUNTER 2023-06-02 10:55 | Inpatient (IN) | payer SELFPAY ==
--- OUTSIDE RECORDS SUMMARY | 2023-06-02 11:15 | XMS REPORT | Continuity of Care Document ---
:1975 Author Organization [facility] t Address [address] [place] [address] [place] [id number] Care Team Providers Name Role Phone PCP, PATIENT DOES NOT HAVE A Primary Care Physician UnavailDyana Deluca Attending Clinician Unavailable FLAVIO ESCAMILLA Attending Clinician Unavailable Flavio Escamilla MD Attending Clinician PUNEET GUIDRY Attending Clinician Unavailable Janeen Cancino DO Attending Clinician Puneet De Leon Attending Clinician FLAVIO ESCAMILLA Admitting Clinician Unavailable Payers Payer Name Policy Type Policy Number Effective Date Expiration Date S [place] MEDICAID PENDING PENDING 2022 00:00:00 Problems Condition Condition Condition Status Onset Resolution Last Treating Co mments Source Name Details Category Date Date Treatment Clinician Date No known No known Disease Unive rs active active ity of problems problems [facility] Allergies, Adverse Reactions, Alerts Allergy Allergy Status Severity Reaction(s) Onset Inactive Treating Comm ents Source Name Type Date Date Clinician NO KNOWN Drug Active Univers ALLERGIE Class ity of S [facility] Social History Social Habit Start Date Stop Date Quantity Comments Source Exposure to 2022-12-08 2022-12-18 Not sure [facility] SARS-CoV-2 (event) 00:00:00 05:48:00 Medica l Branch Sex Assigned At [birth year] [facility] 00:00:00 00:00:00 Medical Branch Smoking Status Start Date Stop Date Source Tobacco smoking consumption Univ [facility] Medical unknown Branch Medications Ordered Filled Start Stop Current Ordering Indication Dosage Frequency Signature Comments Components Source Medication Medication Date Date Medication? Clinician (SIG) Name Name metFORMIN 2022- No [id number] 500mg Take 1 Univers 500 mg -05 16-08 tablet by ity of tablet 00:00: 04:59 mouth 2 [place] 00 :00 (two) Medical times Branch daily with meals for 30 days. ciprofloxac No 500mg 500 mg, U nivers in HCl 07-07 Oral, ity of (CIPRO) 19:30: 18:27 ONCE, 1 [place] tablet 500 00 :00 dose, On Medic al mg [place] [facility] 07/07/22 at 1430, JOSE
Re stricted use approved by: EMERGENCY DEPARTMENT PRESCRIBER
Reason for Anti-Infec tive: Documented Infection< br>Documen jimmie Infection Site: Skin / Soft Tissue
Duration of Therapy: 10 days cephALEXin No 500mg 500 mg, Un lambert (KEFLEX) 07-07 Oral, ity of capsule 500 19:30: 18:27 [place]CE[place] 1 [place] mg [place] :[place] dose, On Medical [place] 07/07/22 at 1430, JOSE
Re ason for Anti-Infec tive: Documented Infection< br>Documen jimmie Infection Site: Skin / Soft Tissue
Duration of Therapy: 10 days HYDROcodone 2021- No 1{tbl} 1 tablet, Univers -acetaminop 07-07 Oral, ity of hen (NORCO 18:30: 18:27 ONCE, 1 [place] as 5) 5-325 mg 00 :00 dose, On Medi baljinder tablet 1 [place] tablet 07/07/22 at 1330, JOSE ciprofloxac Yes [id number] 500mg Take 1 Univers in HCl 500 9-25 tablet by ity of mg tablet 00:00[place] the Medical morning Branch and 1 tablet in the evening. acetaminoph Yes [id number] 1{tbl} Take 1 Un lambert en-codeine 9-25 tablet by ity of 300-30 mg 00:00: mouth [place] tablet 00 every 4 Medical (four) Branch hours as needed for Pain (scale 4-6). Indication s: acute pain ciprofloxac Yes [id number] 500mg Take 1 Univers in HCl 500 9-25 tablet by ity of mg tablet [place]:00[place] the Medical morning Branch and 1 tablet in the evening. acetaminoph Yes [id number] 1{tbl} Take 1 Un lambert en-codeine 9-25 tablet by ity of 300-30 mg 00:00: mouth [place] tablet 00 every 4 Medical (four) Branch hours as needed for Pain (scale 4-6). Indication s: acute pain cephALEXin 2021- No [id number] 500mg Take 1 Univers (KEFLEX) 9-25 10-06 capsule by ity of 500 mg 00:00: 04:59 mouth 4 [place] capsule 00 :00 (four) Medical times Branch daily for 10 days. Vital Signs Vital Name Observation Time Observation Value Comments Source Systolic blood 2022-12-18 15:03:00 173 mm[Hg] [facility] 2022-12-18 15:03:00 101 mm[facility]Hg] [facility] 2022-12-18 15:03:00 85 /min [facility] Respiratory rate 2022-12-18 15:03:00 16 /min [facility] Oxygen saturation in 2022-12-18 15:03:00 97 /min [facility] Arterial blood by [facility] Pulse oximetry [place] Body temperature 2022-12-18 11:43:00 36.17 Brenna [facility] Body height 2022-12-18 11:43:00 170.2 cm [facility] Body weight 2022-12-18 11:43:00 77.111 kg [facility] BMI 2022-12-18 11:43:00 26.63 kg/m2 [facility] Systolic blood 2022-07-07 17:37:00 139 mm[Hg] Univer sity [facility] Diastolic blood 2022-07-07 17:37:00 97 mm[Hg] [facility] Heart rate 2022-07-07 17:37:00 87 /min [facility] Body temperature 2022-07-07 17:37:00 36.44 Brenna [facility] Respiratory rate 2022-07-07 17:37:00 19 /min [facility] Body height 2022-07-07 17:37:00 167.6 cm [facility] Body weight 2022-07-07 17:37:00 77.111 kg [facility] BMI 2022-07-07 17:37:00 27.44 kg/m2 [facility] Oxygen saturation in 2022-07-07 17:37:00 97 /min [facility] Arterial blood by [facility] Pulse oximetry Branch Procedures Procedure Date / Time Performed Performing Clinician Sourrosie e POCT GLUCOSE 2022-12-18 15:03:00 Flavio Escamilla [facility] (AUTOMATED) [facility] XR HUMERUS 2 VW RIGHT 2022-12-18 13:11:00 Flavio Escamilla [facility] XR KNEE <3 VW RIGHT 2022-12-18 13:11:00 Flavio Escamilla [facility] XR SHOULDER <2 VW 2022-12-18 13:11:00 Flavio Escamilla [facility] NOTICE OF PRIVACY 2022-07-07 17:45:04 Doctor Unassigned, No [facility] PRACTICES Name Medical Branch CONSENT/REFUSAL FOR 2022-07-07 17:31:23 Doctor Unassigned, No [facility] AND Name Medical [place] TREATMENT Encounters Start End Encounter Admission Attending Care Care Encounter Source Date/Time Date/Time Type Type Clinicians Facility Department ID 2022-08-22 Outpatient NEO Murray [facility] [id number] Common 13:06:01 Dyana [id number] [facility] 2023-06-02 2023-06-02 Outpatient SFA SFA [id number] Constantino 08:36:31 08:36:31 [id number] F Keegan 2023-05-26 2023-05-26 Outpatient SFA SFA [id number] Constantino 08:37:27 08:37:27 [id number] F Keegan 2023-05-19 2023-05-19 Outpatient SFA SFA [id number] Constantino 08:23:20 08:23:20 [id number] F Keegan 2022-12-18 2022-12-18 [facility] [id number] Univers 05:37:00 09:35:00 FLAVIO morris [facility] 2022-12-18 2022-12-18 [facility] [id number] Univers 05:37:00 09:35:00 Flavio JOHNSON [id number] i ty [facility] [id number] [facility] [id number] [address] 2022-07-07 2022-07-07 Emergency [facility] [id number] Univers 12:41:00 13:56:00 PUNEET morris [facility] 2022-07-07 2022-07-07 Emergency Janeen Cancino [facility] [id number] Univers 12:41:00 13:56:00 Puneet Guidry [id number] ity [facility] [id number] [facility] [id number] [address] Results Test Description Test Time Test Comments Results Result Comments Source POCT GLUCOSE (AUTOMATED) 2022-12-18 15:07:34 Test Item Value Reference Range Interpretation Comme nts POCT GLU (test code = [id number]) 345 mg/dL 70-110 H Lab Interpretation (test code = 28482-2) Abnormal [facility]
[2023-06-02 13:20] LABS: Hematocrit 37.9 % (39.6-49.0); MCV 87.3 fL (80-100); MPV 8.1 fL (7.6-11.3); Platelets 341 thou/uL (152-406); RBC Red Blood Cell Count 4.34 M/uL (4.33-5.43)
[2023-06-02 13:28] LABS: Protime INR 1.09
[2023-06-02 13:40] LABS: Potassium 4.8 mEq/L (3.5-5.1)
--- NOTE | 2023-06-02 15:12 | RAD REPORT ---
EXAM DESCRIPTION: CT - Lower Extremity W/ Cont - 06/02/2023 2:54 pm CLINICAL HISTORY: Left leg pain swelling. Abscess COMPARISON: None. TECHNIQUE: Computed axial tomography obtained from above the left hip to the left foot. 100 cc Isovu e-300 administered intravenously. Coronal and sagittal reconstruction performed All CT scans are performed using dose optimization technique as appropriate and may include automated exposure control or mA/KV adjustment according to patient size. FINDINGS: 10 x 4 x 8 centimeter (cc by AP by trans) abscess is present within the medial right thigh . Several small surrounding reactive lymph nodes are present. No bony destructive lesions seen. No significant hip joint effusion. IMPRESSION: 10 centimeter abscess medial right thigh
[2023-06-02] MEDS ORDERED: METRONIDAZOLE 500mg IVPB 500 MG/100 ML BAG IV ONE (15:43)
[2023-06-02] MEDS ORDERED: NA CHLORIDE 0.9% 100 ML ONE (15:43)
[2023-06-02] MEDS ORDERED: CEFEPIME 1 GM/VIAL ONE (15:44)
[2023-06-02 15:57] LABS: Protime INR 1.08
[2023-06-02] MEDS ORDERED: VANCOMYCIN 1.5 GM in NA CHLORIDE 0.9% 500 ML IVPB ONE (16:00)
--- NOTE | 2023-06-02 16:07 | EDPHYS ---
Physician Documentation [facility] Name: Matthew Herrera Age: 47 yrs Sex: Male : 1975 Arrival Date: 06/02/2023 Time: 10:55 Bed 16 Private MD: ED Physician Alisa Styles HPI: 06/02 14:20 This 47 yrs old Male presents to ER via Wheelchair with complaints of Leg cp3 Infection. 14:20 Patient is a 47-year-old male with a history of diabetes presents to the ED with lower cp3 extremity abscess. The patient endorses he has had a left proximal thigh swelling for 2 weeks that has increasingly worsened and now come to ahead. The patient also has an abscess to the left lower that also has failed outpatient oral abx prescribed. Historical: - Allergies: 11: No Known Allergies; ll1 - PMHx: 11:09 Diabetes - NIDDM; ll1 - PSHx: 11:09 R knee replacement; ll1 - Immunization history:: Adult Immunizations up to date. - Social history:: Smoking status: Patient denies any tobacco usage or history of. ROS: 16:08 Constitutional: Negative for fever, chills, and weight loss, Eyes: Negative for injury, cp3 pain, redness, and discharge, ENT: Negative for injury, pain, and discharge, Neck: Negative for injury, pain, and swelling, Cardiovascular: Negative for chest pain, palpitations, and edema, Respiratory: Negative for shortness of breath, cough, wheezing, and pleuritic chest pain, Back: Negative for injury and pain, : Negative for injury, bleeding, discharge, and swelling, MS/Extremity: Negative for injury and deformity, Skin: Negative for injury, rash, and discoloration, Neuro: Negative for headache, weakness, numbness, tingling, and seizure. 16:08 Abdomen/GI: Positive for abdominal pain. Exam: 16:09 Constitutional: This is a well developed, well nourished patient who is awake, alert, cp3 and in no acute distress. Head/Face: Normocephalic, atraumatic. Eyes: Pupils equal round and reactive to light, extra-ocular motions intact. Lids and lashes normal. Conjunctiva and sclera are non-icteric and not injected. Cornea within normal limits. Periorbital areas with no swelling, redness, or edema. ENT: Nares patent. No nasal discharge, no septal abnormalities noted. Tympanic membranes are normal and external auditory canals are clear. Oropharynx with no redness, swelling, or masses, exudates, or evidence of obstruction, uvula midline. Mucous membranes moist. Neck: Trachea midline, no thyromegaly or masses palpated, and no cervical lymphadenopathy. Supple, full range of motion without nuchal rigidity, or vertebral point tenderness. No Meningismus. Chest/axilla: Normal chest wall appearance and motion. Nontender with no deformity. No lesions are appreciated. Cardiovascular: Regular rate and rhythm with a normal S1 and S2. No gallops, murmurs, or rubs. Normal PMI, no JVD. No pulse deficits. Respiratory: Lungs have equal breath sounds bilaterally, clear to auscultation and percussion. No rales, rhonchi or wheezes noted. No increased work of breathing, no retractions or nasal flaring. Back: No spinal tenderness. No costovertebral tenderness. Full range of motion. Male : Normal genitalia with no discharge or lesions. MS/ Extremity: Pulses equal, no cyanosis. Neurovascular intact. Full, normal range of motion. Neuro: Awake and alert, GCS 15, oriented to person, place, time, and situation. Cranial nerves II-XII grossly intact. Motor strength 5/5 in all extremities. Sensory grossly intact. Cerebellar exam normal. Normal gait. Psych: Awake, alert, with orientation to person, place and time. Behavior, mood, and affect are within normal limits. 16:09 Abdomen/GI: Inspection: abdomen appears normal, Indicators: lower abdominal tenderness, no rebound or gurading. Vital Signs: 11:10 BP 117 / 85; Pulse 82; Resp 17; Temp 98.2; Pulse Ox 100% ; Weight 68.49 kg; Height 5 ll1 ft. 8 in. ; Pain 10/10; 14:35 BP 128 / 89; Pulse 88; Resp 18; Pulse Ox 100% on R/A; mb9 16:07 BP 148 / 94; Pulse 81; Resp 18; Pulse Ox 98% on R/A; mb9 19:48 BP 143 / 100; Pulse 90; Resp 18; Pulse Ox 100% ; Pain 8/10; sm8 21:19 BP 145 / 97; Pulse 77; Resp 16; Pulse Ox 97% ; Pain 8/10; sm8 11:10 Body Mass Index 22.96 (68.49 kg, 172.72 cm) ll1 11:10 Pain Scale: Adult ll1 19:48 Pain Scale: Adult sm8 21:19 Pain Scale: Adult sm8 MDM: 11:00 Patient medically screened. cp3 16:07 ED course: Case discussed with general surgery Dr. Sauceda who will evaluate the cp3 patient. 17:54 Data reviewed: vital signs, nurses notes, radiologic studies, CT scan. Consideration of cp3 Admission/Observation Patient was admitted/placed on observation. Management of patient was discussed with the following: Hospitalist: Dr. Ramos. Cylindrical Mixer: general surgery- leave npo, iv abx. I considered the following discharge prescriptions or medication management in the emergency department Medications were administered in the Emergency Department. See MAR. Historians other than the Patient: Spouse/Significant Other: patient's who endorsed patient with failed outpatient oral abx. 18:27 Differential diagnosis: Left leg soft tissue abscess, soft tissue infection, cp3 cellulitis. Management of patient was discussed with the following: Hospitalist: Dr. Dinero. Independent interpretation of the following test(s) in the Emergency Department CT Scan: My interpretation is rhythm strip interpreted by me: rate 81. Response to treatment: the patient's symptoms have markedly improved after treatment. 06/02 12:07 Order name: CBC w/o diff; Complete Time: 13:54 cp3 06/02 13:54 Interpretation: WBC 13.40; RBC 4.34; HGB 13.1; HCT 37.9; MCV 87.3; MCH 30.1; MCHC 34.5; cp3 PLT 341; RDW 12.2; MPV 8.1. 06/02 12:07 Order name: Basic Metabolic Panel; Complete Time: 13:54 cp3 06/02 13:54 Interpretation: NA 133; K 4.8; CL 98; CO2 30; ANION GAP 9.8; GLUC 147; BUN 21; CRE cp3 0.84; GFR 108; CA 9.0. 06/02 12:07 Order name: PT-INR; Complete Time: 13:54 cp3 06/02 14:03 Order name: Blood Culture Adult (2) cp3 06/02 14:03 Order name: CBC with Diff cp3 06/02 14:03 Order name: CMP cp3 06/02 14:03 Order name: Protime (+inr); Complete Time: 16:17 cp3 06/02 14:03 Order name: Ptt, Activated; Complete Time: 16:17 cp3 06/02 14:15 Order name: Lactate w/ 2H reflex if indic.; Complete Time: 16:17 jl7 06/02 19:14 Order name: Hemoglobin A1c EDMS 06/02 19:15 Order name: Phosphorus EDMS 06/02 19:15 Order name: T4 Free EDMS 06/02 19:15 Order name: Magnesium EDMS 06/02 19:15 Order name: Thyroid Stimulating Hormone EDMS 06/02 21:43 Order name: Glucose, Ancillary Testing EDMS 06/03 02:53 Order name: CBC with Automated Diff EDMS 06/03 03:13 Order name: Basic Metabolic Panel EDMS 06/03 03:13 Order name: Lipid Profile EDMS 06/03 07:58 Order name: Glucose, Ancillary Testing EDMS 06/02 14:20 Order name: Lower Extremity W/ Cont; Complete Time: 15:14 EDMS 06/02 14:03 Order name: EKG; Complete Time: 14:57 cp3 06/02 12:07 Order name: Saline Lock; Complete Time: 13:11 cp3 06/02 12:07 Order name: Misc. Order: open wound to left lower leg, prepare upper left leg for cp3 examination; Complete Time: 13:11 06/02 14:03 Order name: Accucheck; Complete Time: 14:11 3 06/02 14:03 Order name: Cardiac monitoring; Complete Time: 14:11 3 06/02 14:03 Order name: EKG - Nurse/Tech; Complete Time: 14:47 cp3 06/02 14:03 Order name: IV Saline Lock - Large Bore; Complete Time: 14:47 3 06/02 14:03 Order name: Labs collected and sent; Complete Time: 14:11 3 06/02 14:03 Order name: O2 Per Protocol; Complete Time: 14:11 3 06/02 14:03 Order name: O2 Sat Monitoring; Complete Time: 14:11 3 06/02 14:03 Order name: Vital Signs; Complete Time: 14:11 3 08/21 15:55 Order name: NPO; Complete Time: 15:55 mb9 Administered Medications: 15:31 Not Given (Physician Discretion): vancoMYCIN IVPB 1 grams IVPB once over 2 hrs mb9 15:38 Drug: metroNIDAZOLE IVPB 500 mg Volume: 100 ml; Route: IVPB; Rate: 200 ml/hr; Infused mb9 Over: 30 mins; Site: left hand; 16:06 Follow up: Response: No adverse reaction; IV Status: Completed infusion mb9 15:42 Drug: Cefepime IVPB 1 grams Route: IVPB; Rate: 200 ml/hr; Infused Over: 30 mins; Site: mb9 right antecubital; 16:06 Follow up: Response: No adverse reaction; IV Status: Completed infusion mb9 16:06 Drug: vancoMYCIN IVPB 1.5 grams Route: IVPB; Rate: calculated rate; Site: left hand; mb9 Disposition Summary: 06/02/23 16:06 Hospitalization Ordered Hospitalization Status: Inpatient Admission cp3 Provider: Venus Ramos cp3 Condition: Stable cp3 Problem: new cp3 Symptoms: are unchanged cp3 Bed/Room Type: Standard cp3 Location: Telemetry/MedSurg (Inpatient)(06/03/23 06:11) Room Assignment: [facility](06/03/23 07:36) bd Diagnosis - Cutaneous abscess of left lower limb - large 10x4 cm with seperate distal leg soft cp3 tissue infection - Type 2 diabetes mellitus with diabetic neuropathy, unspecified cp3 - Cellulitis of left lower limb cp3 Forms: - Medication Reconciliation Form cp3 - SBAR form cp3 - Leadership Thank You Letter cp3 Signatures: Dispatcher [employer] Corry Askew Cwanza, MD MD cp3 Kaylee Remy RN RN Masoud Rajput RN RN jl7 Kaila Caballero RN RN slim1 Brunilda Moreno RN RN mb9 Corrections: (The following items were deleted from the chart) 16:15 16:06 Lower abdominal pain, unspecified cp3 cp3 16:15 16:06 Unspecified acute appendicitis - with perforation and abscess cp3 cp3 19:29 16:06 Telemetry/MedSurg (Inpatient) cp3 jl7 19:29 16:06 cp3 jl7 06/03 06:06/02 19:29 [facility] ER HOLD jl7 06/03 06:06/02 19:29 ERHOLD- jl7 06/03 07:36 06:11 bd
--- NOTE | 2023-06-02 16:07 | ER ---
Nurse's Notes [facility] Name: Matthew Herrera Age: 47 yrs Sex: Male : 1975 Arrival Date: 06/02/2023 Time: 10:55 Bed 16 Private MD: Diagnosis: Cutaneous abscess of left lower limb-large 10x4 cm with seperate distal leg soft tissue infection;Type 2 diabetes mellitus with diabetic neuropathy, unspecified;Cellulitis of left lower limb Presentation: 06/02 11:10 Chief complaint: Patient states: Abscess to L inner thigh for 2 weeks getting worse. No ll1 drainage, no fever. Also has wound to LLE, seeing Norma Ayala. Coronavirus screen: Client denies travel out of the [place] in the last 14 days. At this time, the client does not indicate any symptoms associated with coronavirus-19. Ebola Screen: Patient denies travel to an Ebola-affected area in the 21 days before illness onset. Initial Sepsis Screen: Does the patient meet any 2 criteria? No. Patient's initial sepsis screen is negative. Does the patient have a suspected source of infection? Yes: Skin breakdown/wound. Risk Assessment: Do you want to hurt yourself or someone else? Patient reports no desire to harm self or others. Onset of symptoms was May 19, 2023. 11:10 Method Of Arrival: Wheelchair ll1 11:10 Acuity: STEFF 3 ll1 Historical: - Allergies: 11:09 No Known Allergies; ll1 - PMHx: 11:09 Diabetes - NIDDM; ll1 - PSHx: 11:09 R knee replacement; ll1 - Immunization history:: Adult Immunizations up to date. - Social history:: Smoking status: Patient denies any tobacco usage or history of. Screenin:[address] [facility] ED Fall Risk Assessment (Adult) History of falling in the last 3 months, mb9 including since admission No falls in past 3 months (0 pts) Confusion or Disorientation No (0 pts) Intoxicated or Sedated No (0 pts) Impaired Gait No (0 pts) Mobility Assist Device Used No (0 pt) Altered Elimination No (0 pt) Score/Fall Risk Level 0 - 2 = Low Risk Oriented to surroundings, Maintained a safe environment, Educated pt \T\ family on fall prevention, incl call for assistance when getting out of bed. Abuse screen: Denies threats or abuse. Nutritional screening: No deficits noted. Tuberculosis screening: No symptoms or risk factors identified. Assessment: 13:20 General: Appears in no apparent distress. Behavior is calm, cooperative. Pain: mb9 Complains of pain in left leg Pain does not radiate. Pain currently is 8 out of 10 on a pain scale. Quality of pain is described as throbbing. Neuro: Razo Agitation-Sedation Scale (RASS): 0 - Alert and Calm Level of Consciousness is awake, alert, obeys commands, Oriented to person, place, time, situation, Appropriate for age. Cardiovascular: Patient's skin is warm and dry. Respiratory: Airway is patent Respiratory effort is even, unlabored, Respiratory pattern is regular, symmetrical. Derm: Skin is pink, warm \T\ dry. Wound noted left perez. Purulent drainage noted. Abscess is quarter sized, has purulent drainage, is red, is raised. 14:35 Reassessment: No changes from previously documented assessment. Patient and/or family mb9 updated on plan of care and expected duration. Pain level reassessed. Patient is alert, oriented x 3, equal unlabored respirations, skin warm/dry/pink. 14:47 Reassessment: pt taken to CT via wheelchair. mb9 16:07 Reassessment: No changes from previously documented assessment. Patient and/or family mb9 updated on plan of care and expected duration. Pain level reassessed. Patient is alert, oriented x 3, equal unlabored respirations, skin warm/dry/pink. Vital Signs: 11:10 BP 117 / 85; Pulse 82; Resp 17; Temp 98.2; Pulse Ox 100% ; Weight 68.49 kg; Height 5 ll1 ft. 8 in. ; Pain 10/10; 14:35 BP 128 / 89; Pulse 88; Resp 18; Pulse Ox 100% on R/A; mb9 16:07 BP 148 / 94; Pulse 81; Resp 18; Pulse Ox 98% on R/A; mb9 19:48 BP 143 / 100; Pulse 90; Resp 18; Pulse Ox 100% ; Pain 8/10; sm8 21:19 BP 145 / 97; Pulse 77; Resp 16; Pulse Ox 97% ; Pain 8/10; sm8 11:10 Body Mass Index 22.96 (68.49 kg, 172.72 cm) ll1 11:10 Pain Scale: Adult ll1 19:48 Pain Scale: Adult sm8 21:19 Pain Scale: Adult sm8 ED Course: 10:56 Patient arrived in ED. rg4 11:00 Alisa Styles MD is Attending Physician. cp3 11:12 Triage completed. ll1 11:12 Arm band placed on. ll1 12:46 Brunilda Moreno, LANDON is Primary Nurse. mb9 13:11 PT-INR Sent. mb9 13:11 Basic Metabolic Panel Sent. mb9 13:11 CBC w/o diff Sent. mb9 13:11 Inserted saline lock: 22 gauge in right antecubital area, using aseptic technique. mb9 13:22 Placed in gown. Bed in low position. Call light in reach. Side rails up X 1. Client mb9 placed on continuous cardiac and pulse oximetry monitoring. NIBP monitoring applied. 14:55 Lower Extremity W/ Cont In Process Unspecified. EDMS 15:39 Inserted saline lock: 22 gauge in left hand, using aseptic technique. Blood collected. 16:05 Venus Ramos MD is Hospitalizing Provider. cp3 Administered Medications: 15:31 Not Given (Physician Discretion): vancoMYCIN IVPB 1 grams IVPB once over 2 hrs mb9 15:38 Drug: metroNIDAZOLE IVPB 500 mg Volume: 100 ml; Route: IVPB; Rate: 200 ml/hr; Infused mb9 Over: 30 mins; Site: left hand; 16:06 Follow up: Response: No adverse reaction; IV Status: Completed infusion mb9 15:42 Drug: Cefepime IVPB 1 grams Route: IVPB; Rate: 200 ml/hr; Infused Over: 30 mins; Site: mb9 right antecubital; 16:06 Follow up: Response: No adverse reaction; IV Status: Completed infusion mb9 16:06 Drug: vancoMYCIN IVPB 1.5 grams Route: IVPB; Rate: calculated rate; Site: left hand; mb9 Outcome: 16:06 Decision to Hospitalize by Provider. cp3 06/03 09:52 Patient left the ED. ll1 Signatures: Dispatcher [employer] EDMS Alisa Styles MD MD cp3 Amanda Remy rg4 Kaila Caballero RN RN ll1 Aubrie oBb Brunilda Moreno RN RN mb9 Pryor, Cheryl sm8
[2023-06-02] MEDS ORDERED: ACETAMINOPHEN 325 MG TABLET PO PRN (17:47)
[2023-06-02] MEDS ORDERED: ONDANSETRON 4 MG/2 ML VIAL IV PRN (17:53)
--- NOTE | 2023-06-02 17:55 | P.HP ---
Certification for Inpatient Patient admitted to: Observation With expected LOS: <2 Midnights Patient will require the following post-hospital care: None Practitioner: I am a practitioner with admitting privileges, knowledge of patient current condition, hospital course, and medical plan of care. Services: Services provided to patient in accordance with Admission requirements found in Title 42 Section 412.3 of the Code of Federal Regulations Patient History Date of Service: 06/02/23 Reason for admission: Left thigh abscess History of Present Illness: Patient is a 47-year-old male with a past medical history significant for DM 2 and HTN who presents with complaint of left thigh swelling\pain\redness that has been ongoing for the past 2 weeks. Patient rated pain as 8/10 in severity and describes pain as aching in quality. Patient also reports left lower extremity wound\abscess. Patient denies any other signs or symptoms. Symptoms are aggravated or relieved by nothing. Patient decided to present to the hospital due to worsening symptoms. Allergies No Known Allergies Allergy (Verified 03/10/18 11:40) Home Medications: Amox/Clavulanate [Augmentin 875-125 Tab] 1 each PO BID #28 tab 03/12/18 Doxycycline Monohydrate 100 mg PO BID #28 capsule 03/12/18 lisinopriL [Prinivil*] 10 mg PO DAILY #30 tab 03/12/18 - Past Medical/Surgical History Diabetic: Yes -: Diabetes mellitus type 2 -: Hypertension -: Right knee surgery Psychosocial/ Personal History: The patient is single. He has 1 child. 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 - Family History Mother -: Hypertension, Diabetes Brother -: Diabetes, Cancer - Social History Smoking Status: Former smoker Alcohol use: No CD- Drugs: No Caffeine use: Yes Place of Residence: Home Review of Systems General: Unremarkable Eyes: Unremarkable ENT: Unremarkable Respiratory: Unremarkable Cardiovascular: Unremarkable Gastrointestinal: Unremarkable Genitourinary: Unremarkable Musculoskeletal: Unremarkable Integumentary: Other (left thigh swelling\pain\redness, LLE wound) Neurological: Unremarkable Lymphatics: Unremarkable Physical Examination - Physical Exam General: Alert, In no apparent distress, Oriented x3, Cooperative, Mild distress HEENT: Atraumatic, PERRLA, Mucous membr. moist/pink, EOMI, Sclerae nonicteric Neck: Supple, 2+ carotid pulse no bruit, No LAD, Without JVD or thyroid abnormality Respiratory: Clear to auscultation bilaterally, Normal air movement Cardiovascular: No edema, Regular rate/rhythm, Normal S1 S2 Capillary refill: <2 Seconds Gastrointestinal: Normal bowel sounds, Soft and benign, Non-distended, No tend erness Musculoskeletal: No clubbing, No swelling, No tenderness Integumentary: No rashes, Skin breakdown, Tenderness/swelling, Erythema Neurological: Normal speech, Normal tone, Normal affect Lymphatics: No axilla or inguinal lymphadenopathy - Studies Laboratory Data (last 24 hrs) 06/02/23 06/02/23 06/02/23 15:35 13:09 13:09 WBC Hgb Hct Plt Count PT 11.9 12.0 INR 1.08 1.09 APTT 32.0 Sodium 133 L Potassium 4.8 BUN 21 H Creatinine 0.84 Glucose 147 H 06/02/23 13:09 WBC 13.40 H Hgb 13.1 L Hct 37.9 L Plt Count 341 PT INR APTT Sodium Potassium BUN Creatinine Glucose Assessment and Plan - Plan --Left thigh abscess. CT of left lower extremity indicates a 10 x 4 x 8 cm abscess in the left breast. Blood cultures pending. Continue antibiotics. Surgeon consulted. We will await further recommendations. --DM2. Poorly controlled. BS monitoring with sliding scale insulin --Acute pain. We will manage pain with current pain medication regimen. --Anemia of chronic disease. H&H stable. Monitor hemoglobin and transfuse if less than 7.0. --Hypertension. Stable. Continue Home medication. --DVT prophylaxis with SCDs. Discharge Plan: Home Plan to discharge in: 48 Hours - Advance Directives Does patient have a Living Will: No Does patient have a Durable POA for Healthcare: No - Code Status/Comfort Care Code Status Assessed: Yes Physician Review: Patient Assessed, Agree with Above Assessment and Plan Critical Care: No
[2023-06-02 18:11] VITALS: BMI 22.8
--- NOTE | 2023-06-02 18:11 | EKG ---
Test Date: 2023-06-02 Test Time: 15:10:41 Mri Supervisor: MB MEASUREMENT RESULTS: Intervals: Rate: 85 NE: 186 QRSD: 82 QT: 376 QTc: 447 [place]: P: 44 NE: 186 QRS: 89 T: 45 INTERPRETIVE STATEMENTS: Normal sinus rhythm Possible Left atrial enlargement Borderline ECG Compared to ECG 05/03/2019 21:40:27 Sinus bradycardia no longer present First degree AV block no longer present Right-axis deviation no longer present ST (T wave) deviation no longer present Electronically Signed On 06-02-23 18:01:55 CDT by Adi Garcia
[2023-06-02 18:53] LABS: Absolute Lymphocytes (CBC) 2.4 K/uL (0.7-4.9); Hematocrit 36.3 % (39.6-49.0); Lymphocytes % 18.4 % (15.3-44.8); MCV 87.1 fL (80-100); MPV 7.8 fL (7.6-11.3); Platelets 301 thou/uL (152-406); RBC Red Blood Cell Count 4.17 M/uL (4.33-5.43)
[2023-06-02 19:07] LABS: Albumin 2.1 g/dL (3.4-5.0); Bilirubin Total 0.4 mg/dL (0.2-1.0); Potassium 3.7 mEq/L (3.5-5.1); Protein, Total 7.1 g/dL (6.4-8.2)
[2023-06-02 19:15] LABS: Magnesium 1.8 mg/dL (1.6-2.4); Phosphorus 3.8 mg/dL (2.5-4.9); Thyroid Stimulating Hormone 1.65 uIU/mL (0.358-3.740)
[2023-06-02] MEDS: INSULIN -REGULAR HUMAN 50 UNIT/0.5 ML ML SQ SCH (21:00)
[2023-06-02] MEDS: MORPHINE 4 MG/ML SYR IV PRN (22:30)
[2023-06-02] MEDS ORDERED: MORPHINE 4 MG/ML SYR ONE (22:38)
[2023-06-02] MEDS ORDERED: ONDANSETRON 4 MG/2 ML VIAL ONE (22:39)
[2023-06-03] MEDS: CEFEPIME 2 GM in NA CHLORIDE 0.9% 100 ML IV SCH ×3 (01:20→17:08)
[2023-06-03] MEDS ORDERED: CEFEPIME 2 GM VIAL ONE ×2 (01:23→08:48)
[2023-06-03] MEDS ORDERED: VANCOMYCIN 1 GM/VIAL ONE (01:23)
[2023-06-03] MEDS ORDERED: NA CHLORIDE 0.9% 250 ML ONE (01:24)
[2023-06-03] MEDS ORDERED: NA CHLORIDE 0.9% 100 ML ONE ×2 (01:24→08:49)
[2023-06-03 02:49] LABS: Hematocrit 32.3 % (39.6-49.0); Lymphocytes % 21.5 % (15.3-44.8); MCV 86.6 fL (80-100); MPV 8.1 fL (7.6-11.3); Platelets 289 thou/uL (152-406); RBC Red Blood Cell Count 3.73 M/uL (4.33-5.43)
[2023-06-03 03:13] LABS: Potassium 3.6 mEq/L (3.5-5.1)
[2023-06-03] MEDS: VANCOMYCIN 1 GM in NA CHLORIDE 0.9% 250 ML IVPB SCH ×2 (04:20→17:37)
[2023-06-03] MEDS: INSULIN -REGULAR HUMAN 50 UNIT/0.5 ML ML SQ SCH ×4 (07:30→20:43)
[2023-06-03] MEDS ORDERED: POTASSIUM CL SA 10 MEQ TAB PO ONE (08:14)
[2023-06-03] MEDS ORDERED: MORPHINE 4 MG/ML SYR ONE (08:50)
[2023-06-03] MEDS: MORPHINE 4 MG/ML SYR IV PRN ×2 (09:20→14:11)
[2023-06-03] MEDS ORDERED: NA CHLORIDE 0.9% 1,000 ML ONE (10:17)
[2023-06-03] MEDS ORDERED: FENTANYL CITR 100 MCG/2 ML ONE (10:58)
[2023-06-03] MEDS ORDERED: propofoL 200 MG/20 ML VIAL IV ONE (10:58)
[2023-06-03] MEDS ORDERED: KETOROLAC 30 MG/ML INJ ONE (10:58)
[2023-06-03] MEDS ORDERED: dexAMETHasone 10 MG/ML VIAL ONE (10:58)
[2023-06-03] MEDS ORDERED: MIDAZOLAM HCL 2 MG/2 ML INJ ONE (10:58)
[2023-06-03] MEDS ORDERED: LIDOCAINE 2% MPF 5 ML VIAL ONE (10:58)
[2023-06-03] MEDS ORDERED: KETAMINE HCL IN 0.9 % NACL 50 MG/5 ML SYRINGE IV ONE (10:58)
[2023-06-03] MEDS ORDERED: ONDANSETRON 4 MG/2 ML VIAL ONE (10:58)
[2023-06-03] MEDS ORDERED: BUPIVACAINE 0.25% PF 10 ML VIAL ONE (11:02)
--- NOTE | 2023-06-03 12:03 | P.OP ---
Preoperative diagnosis: LEFT medial thigh abscess, LEFT lower leg necrotic wound Postoperative diagnosis: LEFT medial thigh abscess, LEFT lower leg necrotic wound Primary procedure: Excisional Debridement of LEFT medial thigh abscess, LEFT lower leg wound Anesthesia: GETA + Local Estimated blood loss: <20cc Specimen: Cultures x 2 sites, debridement tissues Findings: (cm) 10x5x5 thigh, 3.5x3.5 x 0.3 lower leg Complications: None Transferred to: Recovery Room Condition: Good
[2023-06-03 12:42] VITALS: O2SAT 98
--- NOTE | 2023-06-03 14:36 | CON ---
Date of Consultation: 06/03/2023 Brief History Of Present Illness: The patient is a 47-year-old male with past medical histo ry significant for diabetes, hypertension, who presents with approximately 2-3 week history of left t high swelling, pain, redness, which has been going on for the above-stated period of time. It seemed to be getting progressively worse; however, he did not seek attention for this immediately. The shirley n got significantly worst 8/10 at a severity, described as achy in quality, radiating down the leg, a ssociated with some pain and minimal weakness in the lower extremity as well. He also noted that he had an area of his lower leg on the left side also that had been become black, necrotic and had been draining pus like material for almost the same period of time. He denies any trauma, any sick contac ts, any recent travel, any new exposures to chemicals. He is unaware of any envenomation by animals or insects. He is unaware of any traumatic incident. This seemed to arise without any evidence of i nciting factor by his description. Past Medical History: Significant for diabetes, hypertension. Past Surgical History: Includes right knee surgery times multiple revisions. Allergies: NO KNOWN DRUG ALLERGIES. Home Medications: Include Augmentin, doxycycline, Prinivil. Social History: He is single. He has 1 child. 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 He st opped smoking less than a year ago. He has smoking cigarettes for many years prior to this. He julio es alcohol or recreational drug use. Family History: Significant for hypertension, diabetes in his mother. Diabetes and cancer in his br other. Review of Systems: Ten-point review of systems other than HPI, he has some minimal weakness to the left leg since the ab scess has gotten large for the past week approximately. Physical Examination: General: At the time of my examination; he is awake, alert, oriented. Psychiatric: Appropriate, conversive. HEENT: He is normocephalic. His sclerae anicteric. Mucous membranes are moist. Oropharynx is cristal r. Neck: Supple without JVD. Chest: Expansion and excursion. Cardiovascular: Regular rate and rhythm. Pulmonary: Clear to auscultation bilaterally. Abdomen: Soft. Extremities: He has a left thigh medial fluctuant abscess in the area with some minimal skin changes on top. He states that it looked exactly like this for the past week or so, but he has been experie ncing it for much longer as described above. He also has an area of necrosis on the left lower leg, which has some minimal purulent fluid emanating from this too. There is no surrounding cellulitis ar ound the lower leg wound, but the upper leg wound has minimal cellulitis, but no streaking or advance ment obvious. He is noncompliant with neurologic exam to that leg because he states that the pain is significant and he does not like moving the leg as it causes significant pain. His right lower extr emity and upper extremities are normal with normal range of motion and movement. Laboratory Data: Revealed white blood cell count of 13.4, hemoglobin , hematocrit 37.9, pl atelet count is 341. His coags showed a PT 12, INR 1.09, PTT was 32.0. His sodium was 135, potassiu m 3.7, chloride 102, carbon dioxide is 31, BUN 17, creatinine 0.7, glucose is 104. He had imaging, [facility] included a lower extremity CT on 06/02/2023, officially read as a 10 x 4 x 8 cm abscess is prese nt within the medial right thigh and this is incorrect; however, it is the left thigh. Several small surrounding reactive lymph nodes are present. No bony destructive lesions seen. The impression is a 10 cm abscess in the medial right thigh; however, I have corrected that this was a left thigh absce ss, not right thigh. Assessment And Plan: 1.This is a 47-year-old man, who presents with signs and symptoms of a left medial thigh abscess whi ch has been present for several weeks and has worsened over the course of time. 2.He also has a wound of the same left lower extremity which was a necrotic dry wound with abscess m aterial emanating from the central portion, otherwise dry wound. 3.I have explained the risks, benefits, and alternatives of excisional debridement and drainage of t he medial thigh abscess and lower extremity wound including, but not limited to bleeding, infection, damage to surrounding tissues, injury to nerves and blood vessels, potential weakness, numbness, para lysis of the left lower extremity, need for further operation and procedures. I explained that I wou ld like to proceed with this emergently; however, the patient states he has eaten recently prior to h is arrival to the hospital and as such I instructed the patient we will make him n.p.o. after midnigh t and proceed with surgery the next day. I have explained the risks, benefits, and alternatives of t he above stated plan. The patient agreed to proceed as indicated. Thank you for this interesting consult. MIGUEL Voice ID: [id number] Report ID: [id number]
--- NOTE | 2023-06-03 16:12 | OP ---
Date of Procedure: 06/03/2023 Surgeon: Pranav Sauceda MD, Preoperative Diagnosis: Left medial thigh abscess and left lower leg necrotic tissue. Postoperative Diagnosis: Left medial thigh abscess and left lower leg necrotic tissue. Procedure Performed: Excisional debridement of left medial thigh abscess and left lower leg wound. Anesthesia: General plus local with 0.25% Marcaine. Estimated Blood Loss: Less than 20 cc. Specimen: Culture sent both aerobic and anaerobic speciation x2 sites and debridement tissue from can th sites. Findings: The medial thigh fluid collection was approximately and necrotic tissue encompassed an are a of approximately 10 cm x 5 cm x 5 cm on the medial aspect of the left thigh and the left lower leg encompassed an area of approximately 3.5 x 3.5 x 0.3 cm. Complications: None. Disposition: The patient was transferred to the recovery room in good condition. Procedure In Detail: After informed consent was obtained, the patient was brought to the operating r oom, prepped and draped in the usual sterile fashion after adequate anesthesia was achieved. I anest hetized the skin overlying the medial thigh abscess. I immediately opened this with a 15 blade circu mferentially down around through subcutaneous tissues making an elliptical incision to encompass area s of obvious skin necrosis and ischemic changes with infection. I immediately encountered was a larg e amount of purulent material. This was cultured both aerobic and anaerobic speciation. I proceeded to remove the skin ellipse at this point and opened and unroofed the entire area suctioning out the all necrotic nonviable tissue. Several structures were appreciated as superficial nerves and arterie s. These were spared throughout the procedure, which were found to be quite thin and alveolar tissue surrounding them. The area was copiously irrigated with a pulse lavage device circumferentially and all necrotic tissue was removed using a blunt dissection. I digitized the entire tract to ensure no loculations were left unaddressed at this point. I then irrigated the area copiously with the pulse lavage once again. Hemostasis was achieved with minimal electrocautery avoiding all vital structure s at this point. The area was packed with Surgicel as there was slow diffuse oozing from cut surface s and I placed the dressing on top at this point using Kerlix with Vashe damp to dry and a sterile dr essing placed over top. I then turned my attention to the left lower leg wound. There was obvious n ecrotic tissue here. This was circumferentially dissected using a 15 blade after appropriately anest hetizing the skin with 0.25% Marcaine down through the subcutaneous tissues. I then removed all necr otic tissue, sent off for pathologic examination. Abscess material was once again encountered in thi s area. This was sent for both aerobic and anaerobic speciation separately. All necrotic nonviable tissue was removed with sharp dissection and electrocautery combination. I then irrigated the area o nce again with pulse lavage device. Hemostasis was achieved with electrocautery. I then packed the wound with Vashe-soaked Kerlix, damp to dry and a sterile dressing placed over top. The patient tole rated the procedure well without evidence of complication and transferred to PACU in good condition. All counts were correct at the end of the case. REID/FROILAN Voice ID: [id number] Report ID: [id number]
[2023-06-03] MEDS ORDERED: TRAMADOL HCL 50 MG TAB PO PRN (20:21)
[2023-06-03] MEDS: HYDROCODONE/APAP 5/325 MG TAB PO PRN (20:39)
[2023-06-04] MEDS: CEFEPIME 2 GM in NA CHLORIDE 0.9% 100 ML IV SCH ×3 (00:01→16:30)
[2023-06-04 03:58] LABS: Potassium 4.1 mEq/L (3.5-5.1)
[2023-06-04] MEDS: VANCOMYCIN 1 GM in NA CHLORIDE 0.9% 250 ML IVPB SCH ×2 (04:33→15:20)
[2023-06-04] MEDS ORDERED: VANCOMYCIN 1 GM/VIAL ONE (04:42)
[2023-06-04] MEDS: MORPHINE 4 MG/ML SYR IV PRN ×3 (05:56→21:24)
[2023-06-04] MEDS: HYDROCODONE/APAP 5/325 MG TAB PO PRN ×2 (08:38→15:33)
[2023-06-04] MEDS: INSULIN -REGULAR HUMAN 50 UNIT/0.5 ML ML SQ SCH ×4 (08:38→21:25)
--- NOTE | 2023-06-04 18:11 | P.PN ---
Subjective Date of Service: 06/04/23 Chief Complaint: Left thigh abscess Subjective: Improving (Pain much improved, no neuromuscular deficits) Physical Examination - Vital Signs Temperature: 98.2 F Blood Pressure: 141/84 Pulse: 79 Respirations: 19 Pulse Ox (%): 97 - Physical Exam General: Alert, In no apparent distress, Cooperative Musculoskeletal: Other (normal movement of LEFT lower extremity, dressings clean and dry) Neurological: Normal speech Assessment And Plan - Current Problems (Diagnosis) (1) Abscess of left thigh Current Visit: Yes Status: Acute Plan: - continue antibiotics - serial exams - dressing changes daily - wrap and elevate - physical therapy Physician Review: Patient Assessed, Agree with Above Assessment and Plan
--- NOTE | 2023-06-05 00:21 | P.PN ---
Subjective Date of Service: 06/03/23 Subjective: No new changes, No C/O voiced Patient's still with pain. Patient denies any new complaints. Patient is scheduled to go the OR today. Review of Systems 10-point ROS is otherwise unremarkable Physical Examination - Vital Signs Temperature: 97.8 F Blood Pressure: 148/86 Pulse: 68 Respirations: 16 Pulse Ox (%): 98 - Physical Exam General: Alert, In no apparent distress, Oriented x3 HEENT: Atraumatic, PERRLA, EOMI Neck: Supple, JVD not distended Respiratory: Clear to auscultation bilaterally, Normal air movement Cardiovascular: Regular rate/rhythm, Normal S1 S2, No murmurs Gastrointestinal: Normal bowel sounds, Soft and benign, Non-distended, No tenderness Musculoskeletal: No clubbing, No swelling, No tenderness Integumentary: Tenderness/swelling, Erythema, Warmth ( To the thigh and perez) - Studies Medications List Reviewed: Yes Assessment & Plan - Problems (Diagnosis) (1) Abscess of lower leg Current Visit: Yes Status: Acute (2) Abscess of left thigh Current Visit: Yes Status: Acute (3) Diabetes mellitus Onset Date: 03/11/18 Current Visit: No Status: Chronic Qualifiers: Diabetes mellitus type: type 2 Diabetes mellitus penitentiary insulin use: without penitentiary use Diabetes mellitus complication status: with other specified complication Qualified Code(s): E11.69 - Type 2 diabetes mellitus with other specified complication (4) Hypertension Onset Date: 03/11/18 Current Visit: No Status: Chronic Qualifiers: Hypertension type: essential hypertension Qualified Code(s): I10 - Essential (primary) hypertension - Plan 1. Continue with IV antibiotic 2. Continue with local wound care 3. Wound care consultation/surgical consultation 4. Gentle IV hydration 5. Monitor CBC 6. Strict blood sugar monitoring 7. Pain control 8. GI and DVT prophylaxis Discharge Plan: Home Plan to discharge in: Greater than 2 days - Advance Directives Does patient have a Living Will: No Does patient have a Durable POA for Healthcare: No - Code Status/Comfort Care Code Status Assessed: Yes Code Status: Full Code Physician Review: Patient Assessed, Agree with Above Assessment and Plan Critical Care: No Time Spent Managing PTS Care (In Minutes): 35
--- NOTE | 2023-06-05 00:24 | P.PN ---
Date of Service: 06/04/23 Subjective Subjective: Patient states the pain is better since surgery. Patient denies any new complaints. Review of Systems 10-point ROS is otherwise unremarkable Physical Examination - Vital Signs Reviewed - Physical Exam General: Alert, In no apparent distress, Oriented x3 Respiratory: Clear to auscultation bilaterally, Normal air movement Cardiovascular: Regular rate/rhythm, Normal S1 S2, No murmurs Gastrointestinal: Normal bowel sounds, Soft and benign, Non-distended, No tenderness Musculoskeletal: No clubbing, No swelling, No tenderness Integumentary: Tenderness/swelling, Erythema, Warmth ( To the thigh and perez) - Studies Medications List Reviewed: Yes Assessment & Plan - Problems (Diagnosis) (1) Abscess of lower leg Current Visit: Yes Status: Acute (2) Abscess of left thigh Current Visit: Yes Status: Acute (3) Diabetes mellitus Onset Date: 03/11/18 Current Visit: No Status: Chronic Qualifiers: Diabetes mellitus type: type 2 Diabetes mellitus shelter insulin use: without shelter use Diabetes mellitus complication status: with other specified complication Qualified Code(s): E11.69 - Type 2 diabetes mellitus with other specified complication (4) Hypertension Onset Date: 03/11/18 Current Visit: No Status: Chronic Qualifiers: Hypertension type: essential hypertension Qualified Code(s): I10 - Essential (primary) hypertension - Plan Continue plan of care as mentioned below: 1. Continue with IV antibiotic 2. Continue with local wound care 3. Wound care consultation/surgical consultation appreciated 4. Gentle IV hydration 5. Monitor CBC 6. Strict blood sugar monitoring 7. Pain control 8. GI and DVT prophylaxis Discharge Plan: Home Plan to discharge in: Greater than 2 days - Advance Directives Does patient have a Living Will: No Does patient have a Durable POA for Healthcare: No - Code Status/Comfort Care Code Status Assessed: Yes Code Status: Full Code Physician Review: Patient Assessed, Agree with Above Assessment and Plan Critical Care: No Time Spent Managing PTS Care (In Minutes): 35
[2023-06-05] MEDS: CEFEPIME 2 GM in NA CHLORIDE 0.9% 100 ML IV SCH ×2 (01:40→08:08)
[2023-06-05] MEDS: MORPHINE 4 MG/ML SYR IV PRN ×3 (03:35→19:50)
[2023-06-05] MEDS: VANCOMYCIN 1 GM in NA CHLORIDE 0.9% 250 ML IVPB SCH (03:36)
[2023-06-05 03:38] LABS: Absolute Lymphocytes (CBC) 2.3 K/uL (0.7-4.9); Hematocrit 33.2 % (39.6-49.0); Lymphocytes % 32.1 % (15.3-44.8); MCV 86.3 fL (80-100); MPV 8.3 fL (7.6-11.3); Platelets 267 thou/uL (152-406); RBC Red Blood Cell Count 3.85 M/uL (4.33-5.43)
[2023-06-05 03:41] LABS: Potassium 4.2 mEq/L (3.5-5.1)
[2023-06-05] MEDS: INSULIN -REGULAR HUMAN 50 UNIT/0.5 ML ML SQ SCH ×4 (08:07→20:18)
[2023-06-05] MEDS: HYDROCODONE/APAP 5/325 MG TAB PO PRN ×3 (08:07→23:07)
[2023-06-05] MEDS: CEFAZOLIN SODIUM 2 GM in NA CHLORIDE 0.9% 100 ML IVPB SCH (16:41)
[2023-06-05 19:24] LABS: Urine Bacteria <20 /HPF (<20); Urine Bilirubin NEGATIVE (Negative); Urine Blood Negative (Negative); Urine Clarity Clear (Clear); Urine Color Light-Yellow (Yellow); Urine Glucose 3+ (Negative); Urine Protein TRACE (Negative); Urine RBC <5 /HPF (None Seen); Urine Urobilinogen Normal (Normal); Urine pH 6.5 (5.0-7.0)
[2023-06-06] MEDS: CEFAZOLIN SODIUM 2 GM in NA CHLORIDE 0.9% 100 ML IVPB SCH ×3 (01:15→16:08)
[2023-06-06] MEDS: MORPHINE 4 MG/ML SYR IV PRN ×3 (03:55→20:22)
[2023-06-06 07:21] LABS: Hematocrit 33.7 % (39.6-49.0); Lymphocytes % 39.1 % (15.3-44.8); MCV 85.8 fL (80-100); MPV 7.5 fL (7.6-11.3); Platelets 284 thou/uL (152-406); RBC Red Blood Cell Count 3.93 M/uL (4.33-5.43)
[2023-06-06] MEDS: INSULIN -REGULAR HUMAN 50 UNIT/0.5 ML ML SQ SCH ×4 (07:30→20:24)
[2023-06-06] MEDS: HYDROCODONE/APAP 5/325 MG TAB PO PRN (15:01)
[2023-06-07 03:52] LABS: Absolute Lymphocytes (CBC) 2.5 K/uL (0.7-4.9); Hematocrit 34.7 % (39.6-49.0); Lymphocytes % 40.9 % (15.3-44.8); MPV 8.2 fL (7.6-11.3); Platelets 288 thou/uL (152-406); RBC Red Blood Cell Count 4.03 M/uL (4.33-5.43)
[2023-06-07 04:09] LABS: Potassium 3.9 mEq/L (3.5-5.1)
[2023-06-07] MEDS: MORPHINE 4 MG/ML SYR IV PRN ×3 (04:40→10:20)
[2023-06-07] MEDS: CEFAZOLIN SODIUM 2 GM in NA CHLORIDE 0.9% 100 ML IVPB SCH ×3 (08:21)
[2023-06-07] MEDS: INSULIN -REGULAR HUMAN 50 UNIT/0.5 ML ML SQ SCH ×2 (08:21→11:32)
[2023-06-07 08:23] VITALS: BP 143/90; TEMP 97.7
[2023-06-07] MEDS ORDERED: POTASSIUM CL SA 10 MEQ TAB PO ONE (09:00)
--- NOTE | 2023-06-07 11:49 | P.PN ---
Subjective Date of Service: 06/07/23 Chief Complaint: Left thigh abscess Subjective: Improving (No acute issues no complaints) Physical Examination - Vital Signs Temperature: 97.7 F Blood Pressure: 143/90 Pulse: 79 Respirations: 14 Pulse Ox (%): 96 - Physical Exam General: Alert, In no apparent distress, Cooperative Integumentary: Other (Left lower extremity wounds are clean and dry without any evidence of necrosis, good granulation tissue, no cellulitis no signs of infection.) - Studies Medications List Reviewed: Yes Assessment And Plan - Current Problems (Diagnosis) (1) Abscess of left thigh Current Visit: Yes Status: Acute Plan: - continue antibiotics - serial exams - dressing changes daily - wrap and elevate - physical therapy -Follow-up in clinic this week. -Patient's has been instructed on proper wound care and how to pack the wound daily. Physician Review: Patient Assessed, Agree with Above Assessment and Plan
== END 2023-06-07 13:12 | disposition home or self-care (01) | DRG 571 ==
LOC: ER 10:55 → ERHOLD 17:42 → 2ND 06-03 09:34
PROVIDERS: ADMIT Hospitalist; ATTEND Hospitalist
PROC: 0JBM0ZZ Excision of Left Upper Leg Subcutaneous Tissue and Fascia, Open Approach (ICD-10-PCS; 2023-06-03)
PROC: 0JBP0ZZ Excision of Left Lower Leg Subcutaneous Tissue and Fascia, Open Approach (ICD-10-PCS; principal; 2023-06-03 11:00)
DX: L03.116 Cellulitis of left lower limb (principal); E11.52 Type 2 diabetes mellitus with diabetic peripheral angiopathy with gangrene; L02.416 Cutaneous abscess of left lower limb; I10 Essential (primary) hypertension; D63.8 Anemia in other chronic diseases classified elsewhere; E11.9 Type 2 diabetes mellitus without complications; E11.40 Type 2 diabetes mellitus with diabetic neuropathy, unspecified; Z96.651 Presence of right artificial knee joint; Z79.899 Other long term (current) drug therapy; Z87.891 Personal history of nicotine dependence; Z91.199 Patient's noncompliance with other medical treatment and regimen due to unspecified reason
CPT/HCPCS: 36415; 73701; 80048; 80053; 80061; 80202; 81001; 82947; 83036; 83605; 83735; 84100; 84439; 84443; 85025; 85027; 85610; 85730; 87040; 87070; 87075; 87077; 87186; 87205; 88304; 93005; 97116; 97161; 99284; J0692; J1100; J1815; J2001; J2250; J2405; J2704; J3010; J7030; J7040; J7050; Q9967